=== PATIENT | male | born 1955 | race Caucasian/White ===

== ENCOUNTER 2017-10-07 17:04 | Inpatient (IN) | payer MEDICAID ==
[2017-10-07 17:42] LABS: Basophils % (A) 0 %; Eosinophils # (A) 0.2 k/uL (0-0.7); Eosinophils % (A) 1 %; HCT 45.5 % (39.0-53.0); HGB 14.9 gm/dL (13.0-17.5); Lymphocytes # (A) 0.4 k/uL (1.0-4.8); Lymphocytes % (A) 2 %; MCH 29.3 pg (25.0-35.0); MCHC 32.9 g/dL (31.0-37.0); MCV 89.2 fL (80.0-100.0); Mean Platelet Volume 7.2; Monocytes # (A) 0.7 k/uL (0-1.0); Monocytes % (A) 4 %; Neutrophils # (A) 17.3 k/uL (1.3-7.7); Neutrophils % (A) 93 %; Platelet Count 146 k/uL (150-450); RDW 15.2 % (11.5-15.5); WBC 18.7 k/uL (3.8-10.6)
[2017-10-07] MEDS: SODIUM CHLORIDE 0.9% 250 ML IV SCH ×3 (17:47→18:56)
[2017-10-07 17:55] LABS: Albumin 3.6 g/dL (3.5-5.0); Calcium 8.8 mg/dL (8.4-10.2); Potassium 4.6 mmol/L (3.5-5.1); Total Bilirubin 2.3 mg/dL (0.2-1.3); Total Protein 6.6 g/dL (6.3-8.2)
--- NOTE | 2017-10-07 17:56 | ED ---
General Adult HPI - General Chief complaint: Fever Stated complaint: Sepsis Time Seen by Provider: 10/07/17 17:10 Source: patient, EMS, RN notes reviewed, old records reviewed Mode of arrival: EMS Limitations: no limitations - History of Present Illness Initial comments: 61-year-old male presenting from outside hospital for evaluation of fever and confusion. Patient was taken to the emergency department and found to have an elevated temperature, elevated heart rate, and low blood pressure. Laboratory studies were obtained, patient did receive head CT, chest x-ray, abdominal x- ray. He was given antibiotics, fever control, and IV fluids. He was transferred for further evaluation. At the time of my evaluation patient is alert and oriented 3. He states that over the past several days he has been attempting to lose weight and has had some constipation. He has been straining and he has developed some rectal pain. Denies any central abdominal pain. Denies cough. Denies dysuria. Patient is morbidly obese and diabetic he also has congestive heart failure. Denies any chest pain. He does have dyspnea baseline and is currently on 4 L of home O2. He received Levaquin prior to transfer. - Related Data Home Medications Medication Instructions Recorded Confirmed Aspirin EC [Ecotrin Low Dose] 81 mg PO DAILY 10/07/17 10/07/17 Dapagliflozin Propanediol [Farxiga] 10 mg PO DAILY 10/07/17 10/07/17 Furosemide [Lasix] 40 mg PO DAILY 10/07/17 10/07/17 Glimepiride [Amaryl] 4 mg PO DAILY 10/07/17 10/07/17 Losartan Potassium [Cozaar] 100 mg PO DAILY 10/07/17 10/07/17 Terazosin [Hytrin] 5 mg PO HS 10/07/17 10/07/17 amLODIPine [Norvasc] 10 mg PO DAILY 10/07/17 10/07/17 metFORMIN HCL 1,000 mg PO BID 10/07/17 10/07/17 Allergies Allergy/AdvReac Type Severity Reaction Status Date / Time No Known Allergies Allergy Verified 10/07/17 17:59 Review of Systems ROS Statement: Those systems with pertinent positive or pertinent negative responses have been documented in the HPI. ROS Other: All systems not noted in ROS Statement are negative. Past Medical History Past Medical History: Heart Failure, Diabetes Mellitus, Hypertension History of Any Multi-Drug Resistant Organisms: None Reported Past Surgical History: No Surgical Hx Reported Past Psychological History: No Psychological Hx Reported Smoking Status: Never smoker Past Alcohol Use History: None Reported Past Drug Use History: None Reported General Exam Limitations: no limitations General appearance: alert, in no apparent distress, obese Head exam: Present: atraumatic, normocephalic Eye exam: Present: normal appearance, PERRL ENT exam: Present: normal exam Neck exam: Present: normal inspection, full ROM. Absent: tenderness, meningismus Respiratory exam: Present: decreased breath sounds. Absent: respiratory distress, rhonchi Cardiovascular Exam: Present: normal rhythm, tachycardia GI/Abdominal exam: Present: soft, distended. Absent: tenderness (No tenderness) , guarding, rebound Rectal exam: Present: normal inspection, tenderness (Mild tenderness, no crepitus, no erythema, normal cap refill.) exam: Present: other (No erythema, no crepitus, no induration). Absent: testicular tenderness, urethral discharge, scrotal swelling Extremities exam: Present: pedal edema, other. Absent: tenderness (No cellulitis) Neurological exam: Present: alert, oriented X3, CN II-XII intact. Absent: motor sensory deficit Psychiatric exam: Present: normal affect, normal mood Skin exam: Present: warm, dry, intact. Absent: cyanosis, diaphoretic Course Vital Signs 10/07/17 10/07/17 10/07/17 17:17 18:30 19:00 Temperature 98.2 F 100.1 F H Pulse Rate 128 H 105 H 104 H Respiratory 18 18 18 Rate Blood Pressure 90/50 86/51 87/51 O2 Sat by Pulse 96 96 96 Oximetry 10/07/17 20:06 Temperature Pulse Rate 102 H Respiratory 20 Rate Blood Pressure 94/51 O2 Sat by Pulse 95 Oximetry - Reevaluation(s) Reevaluation #1: 10/07/17 20:35 Vital signs improved with gentle IV hydration and IV antibiotics. Medical Decision Making - Medical Decision Making 61-year-old male sent from outside hospital for fever and confusion. Confusion is completely resolved. Patient is alert and oriented, nonfocal neuro exam. Laboratory studies from outside hospital are reviewed, he did have a elevated white blood cell count at 15, hemoglobin stable, urinalysis was negative for infection. Troponin was mildly elevated at 0.053 with an elevated BNP. Lactic acid was 3.5, this is down trending with a repeat at 2.1. Electrolytes were within normal limits. All laboratory studies were repeated and does show a improved lactic acid at 2.1. White blood cell count continues to trend up at 15. Bilirubin is mildly elevated and as there is no obvious source for his fever at this time, ultrasound is performed after CT is completed and is nondiagnostic. Ultrasound does show thickened gallbladder wall with gallbladder stones. There is no pericholecystic fluid. Negative Mariee's sign. Findings reflect possible acute cholecystitis, this is discussed with Dr. Briones who is general surgery on-call. Patient will be continued on IV antibiotics at this time. Laboratory studies will be repeated to observe for up trending bilirubin. Patient will be continued on vancomycin and Zosyn. Patient will be admitted to internal medicine with infectious disease and general surgery consult. - Lab Data Result diagrams: 10/07/17 17:35 10/07/17 17:35 Lab Results 10/07/17 10/07/17 10/07/17 Range/Units 17:35 17:35 17:35 WBC 18.7 H (3.8-10.6) k/uL RBC 5.10 (4.30-5.90) m/uL Hgb 14.9 (13.0-17.5) gm/dL Hct 45.5 (39.0-53.0) % MCV 89.2 (80.0-100.0) fL MCH 29.3 (25.0-35.0) pg MCHC 32.9 (31.0-37.0) g/dL RDW 15.2 (11.5-15.5) % Plt Count 146 L (150-450) k/uL Neutrophils % 93 % Lymphocytes % 2 % Monocytes % 4 % Eosinophils % 1 % Basophils % 0 % Neutrophils # 17.3 H (1.3-7.7) k/uL Lymphocytes # 0.4 L (1.0-4.8) k/uL Monocytes # 0.7 (0-1.0) k/uL Eosinophils # 0.2 (0-0.7) k/uL Basophils # 0.0 (0-0.2) k/uL Sodium 138 (137-145) mmol/L Potassium 4.6 (3.5-5.1) mmol/L Chloride 101 (98-107) mmol/L Carbon Dioxide 23 (22-30) mmol/L Anion Gap 14 mmol/L BUN 31 H (9-20) mg/dL Creatinine 1.30 H (0.66-1.25) mg/dL Est GFR (CKD-EPI)AfAm 68 (>60 ml/min/1.73 sqM) Est GFR (CKD-EPI)NonAf 59 (>60 ml/min/1.73 sqM) Glucose 148 H (74-99) mg/dL Plasma Lactic Acid Ryan 2.1 H* (0.7-2.0) mmol/L Calcium 8.8 (8.4-10.2) mg/dL Total Bilirubin 2.3 H (0.2-1.3) mg/dL Conjugated Bilirubin (0.0-0.3) mg/dL Unconjugated Bilirubin (0.0-1.1) mg/dL Delta Bilirubin (0.0-0.2) mg/dL AST 69 H (17-59) U/L ALT 71 (21-72) U/L Alkaline Phosphatase 107 (38-126) U/L Total Protein 6.6 (6.3-8.2) g/dL Albumin 3.6 (3.5-5.0) g/dL 10/07/17 Range/Units 17:35 WBC (3.8-10.6) k/uL RBC (4.30-5.90) m/uL Hgb (13.0-17.5) gm/dL Hct (39.0-53.0) % MCV (80.0-100.0) fL MCH (25.0-35.0) pg MCHC (31.0-37.0) g/dL RDW (11.5-15.5) % Plt Count (150-450) k/uL Neutrophils % % Lymphocytes % % Monocytes % % Eosinophils % % Basophils % % Neutrophils # (1.3-7.7) k/uL Lymphocytes # (1.0-4.8) k/uL Monocytes # (0-1.0) k/uL Eosinophils # (0-0.7) k/uL Basophils # (0-0.2) k/uL Sodium (137-145) mmol/L Potassium (3.5-5.1) mmol/L Chloride (98-107) mmol/L Carbon Dioxide (22-30) mmol/L Anion Gap mmol/L BUN (9-20) mg/dL Creatinine (0.66-1.25) mg/dL Est GFR (CKD-EPI)AfAm (>60 ml/min/1.73 sqM) Est GFR (CKD-EPI)NonAf (>60 ml/min/1.73 sqM) Glucose (74-99) mg/dL Plasma Lactic Acid Ryan (0.7-2.0) mmol/L Calcium (8.4-10.2) mg/dL Total Bilirubin 2.4 H (0.2-1.3) mg/dL Conjugated Bilirubin 0.3 (0.0-0.3) mg/dL Unconjugated Bilirubin 0.9 (0.0-1.1) mg/dL Delta Bilirubin 1.2 H (0.0-0.2) mg/dL AST (17-59) U/L ALT (21-72) U/L Alkaline Phosphatase (38-126) U/L Total Protein (6.3-8.2) g/dL Albumin (3.5-5.0) g/dL Critical Care Time Critical Care Time: Yes Total Critical Care Time: 35 Disposition Clinical Impression: Sepsis, Cholecystitis Disposition: ADMITTED IP TO THIS [facility] Condition: Serious Is patient prescribed a controlled substance at d/c from ED?: No Referrals: Ariel Snider MD [Primary Care Provider] - 1-2 days Decision to Admit Reason: Admit from EC Decision Date: 10/07/17 Decision Time: 20:38
[2017-10-07] MEDS ORDERED: VANCOMYCIN IV PER PHARMACY 1 EACH MISC MISCELLANE PRN (18:16)
[2017-10-07] MEDS ORDERED: PIPERACILLIN-TAZOBACTAM 3.375 GM in DEXTROSE/WATER 1 50ML.BAG IVPB STA (18:22)
[2017-10-07 18:32] LABS: Bilirubin, Conjugated 0.3 mg/dL (0.0-0.3); Bilirubin, Delta 1.2 mg/dL (0.0-0.2); Bilirubin,Unconjugated 0.9 mg/dL (0.0-1.1); Total Bilirubin 2.4 mg/dL (0.2-1.3)
--- NOTE | 2017-10-07 18:47 | CT ---
EXAMINATION TYPE: CT abdomen pelvis w con DATE OF EXAM: 10/07/2017 COMPARISON: NONE HISTORY: Fever, confusion and tachycardia x1 week CT DLP: 2846.3 mGycm Automated exposure control for dose reduction was used. CONTRAST: CT scan of the abdomen pelvis is performed with IV Contrast, patient injected with 100ml mL of Isovue 300. FINDINGS- exam is markedly limited by artifact. Portions of the abdomen are not included on exam. Thi s likely related to patient's body habitus. Results in nearly nondiagnostic exam. There is subcutaneo us edema along the intra-abdominal wall. Exam is nondiagnostic for subsegmental basilar atelectasis or infiltrate.. Free air or free fluid. No obvious hydronephrosis. There is a 6 mm lower pole left renal calculus. Hypertrophic and degenerat fabián change of the spine noted. Resolution of the mid and lower lumbar spine is nondiagnostic IMPRESSION- 1. Essentially nondiagnostic exam as portions of the abdomen are not included in the [id number]. T here does appear to be bibasilar subsegmental atelectasis or infiltrate with tiny effusion. 2. Nonobstructing left renal calculus measuring 6 mm lower pole left kidney. 3. Skin thickening and subcutaneous edema along the lower anterior abdomen could be on the basis of amanda rodríguez correlate clinically.
[2017-10-07] MEDS ORDERED: VANCOMYCIN 2,500 MG in SODIUM CHLORIDE 0.9% 500 ML IVPB ONE (19:00)
[2017-10-07] MEDS ORDERED: ACETAMINOPHEN TAB 500 MG TAB PO STA (19:06)
--- NOTE | 2017-10-07 20:26 | US ---
EXAMINATION TYPE: US gallbladder DATE OF EXAM: 10/07/2017 COMPARISON: NONE CLINICAL HISTORY: Pain. Pain EXAM MEASUREMENTS: Liver Length: 24.6 cm Gallbladder Wall: 0.4 cm CBD: 0.6 cm Right Kidney: 14.0 x 5.8 x 6.0 cm Severely morbidly obese pt Pancreas: Limited and obscured by overlying bowel gas Liver: Enlarged, heterogeneous with probable fatty sparing anterior to GB Gallbladder: Possible small gallstone= 5mm in size, wall thickened/ LLD views not obtained due to pt 's morbid obesity Evidence for sonographic Mariee's sign: No CBD: wnl Right Kidney: wnl IMPRESSION: 1. Liver is heterogeneous and enlarged correlate for hepatomegaly. Possible focal area of fatty spari ng near the gallbladder. 2. Multiple gallbladder stones with thickened gallbladder wall measuring 4 mm. Correlate for cholecys titis.
[2017-10-07] MEDS ORDERED: ACETAMINOPHEN TAB 325 MG TAB PO PRN (20:38)
[2017-10-07] MEDS ORDERED: NALOXONE 0.4 MG/ML 1 ML VIAL IV PRN (20:38)
[2017-10-07] MEDS ORDERED: ONDANSETRON 4 MG/2 ML VIAL IVP PRN (20:38)
[2017-10-07] MEDS ORDERED: SODIUM CHLORIDE 0.9% 250 ML IV ONE (21:16)
[2017-10-07 22:30] VITALS: BMI 66.2
[2017-10-07] MEDS: 0.9% NACL WITH KCL 20 MEQ/L 1,000 ML IV SCH (23:00)
[2017-10-08 00:55] LABS: Creatine Kinase MB 2.3 ng/mL (0.0-2.4)
[2017-10-08 00:58] LABS: Troponin I 0.131 ng/mL (0.000-0.034)
[2017-10-08] MEDS: PIPERACILLIN-TAZOBACTAM 3.375 GM in DEXTROSE/WATER 1 50ML.BAG IVPB SCH ×3 (02:48→18:32)
[2017-10-08] MEDS ORDERED: LEVOFLOXACIN 500MG-D5W PMX 500 MG in DEXTROSE/WATER 1 100ML.BAG IVPB SCH (06:00)
[2017-10-08] MEDS: KETOROLAC 30 MG/ML 1 ML VIAL IVP PRN ×2 (06:09→12:13)
[2017-10-08 06:14] LABS: Glucose,Whole Blood 111 mg/dL (75-99)
[2017-10-08 06:42] LABS: Basophils % (A) 0 %; Eosinophils # (A) 0.1 k/uL (0-0.7); Eosinophils % (A) 0 %; HCT 44.2 % (39.0-53.0); Lymphocytes # (A) 0.9 k/uL (1.0-4.8); Lymphocytes % (A) 6 %; MCH 28.8 pg (25.0-35.0); MCHC 31.7 g/dL (31.0-37.0); MCV 90.9 fL (80.0-100.0); Mean Platelet Volume 7.3; Monocytes # (A) 0.7 k/uL (0-1.0); Monocytes % (A) 5 %; Neutrophils # (A) 13.3 k/uL (1.3-7.7); Neutrophils % (A) 88 %; Platelet Count 139 k/uL (150-450); RBC 4.86 m/uL (4.30-5.90); RDW 15.4 % (11.5-15.5); WBC 15.2 k/uL (3.8-10.6)
[2017-10-08 07:00] LABS: Albumin 3.6 g/dL (3.5-5.0); Calcium 8.7 mg/dL (8.4-10.2); Potassium 4.4 mmol/L (3.5-5.1); Total Bilirubin 1.2 mg/dL (0.2-1.3); Total Protein 6.4 g/dL (6.3-8.2)
[2017-10-08 07:25] LABS: Creatine Kinase MB 3.3 ng/mL (0.0-2.4); Troponin I 0.132 ng/mL (0.000-0.034)
--- NOTE | 2017-10-08 09:56 | CONS ---
CONSULTATION This is a 61-year-old gentleman with history of morbid obesity, right-sided heart failure, sleep apnea, hypertension, [id number] diabetes, who is admitted to hospital yesterday with symptoms of not feeling well and fever and confusion. The patient was taken to the emergency room where he was found to have a low blood pressure, elevated heart rate, temperature underwent workup in the form of chest x-ray, CT abdominal x-rays given antibiotics and was transferred to [facility]. Cardiology had been consulted because of elevated troponins. The patient was in [place] at a hospital with symptoms of heart failure and has had extensive workup and I recently seen him in my office. His problems are primarily related to his morbid obesity, right-sided heart failure and what appears like a Pickwickian syndrome. The current admission seems to be related to sepsis. White cell count is elevated at 15.2. BUN and creatinine are up. The troponins are mildly elevated at 0.1 and 0.1, probably related to sepsis and the renal insufficiency. The patient is morbidly obese and is not a candidate for any invasive workup at this time. I will obtain a 2D echo on him to evaluate his LV function and wall motion. PAST MEDICAL HISTORY: Significant for hypertension, rwa-[id number] diabetes. MEDICATIONS: Include aspirin, Lasix, Amaryl, Cozaar, Norvasc, metformin, and Hytrin. ALLERGIES: There are no known drug allergies. FAMILY HISTORY: Negative for premature coronary artery disease. SOCIAL HISTORY: Negative for current smoking, EtOH abuse, or drug abuse. REVIEW OF SYSTEMS: HEENT is significant for confusion. CARDIAC: Negative. Respiratory negative. GI negative. : Negative. Allergy/Immunology: Negative. Skin: Negative. Musculoskeletal significant for arthritis. Psychosocial negative. Endocrine: Negative. Hematological: Negative. Derm: Significant for chronic stasis changes of the lower extremities. Psychosocial negative. Endocrine, hematological and oncological negative. PHYSICAL EXAM: Heart rate is 61 beats per minute. Blood pressure is 94/50. Respirations 18. Chest exam reveals diminished air entry at the bases. Heart exam reveals first and second heart sounds. No gallop. Abdomen is soft. Exam of extremities reveals bilateral pitting edema. LABS: Labs show a hemoglobin of 14, white cell count is elevated. Potassium is 4.4, creatinine is 1.6. Tropes are mildly elevated. ASSESSMENT: 1. Sepsis. 2. Elevated troponins. I reviewed his EKG. It is within normal limits. I will obtain a 2D echo. No other evaluation is needed for the troponin elevation at this time. We are going to follow the patient with you with interest. On discharge, he can keep the appointment that he already had from his recent evaluation in my office. I will obtain a 2D echo on this admission. Thank you for giving me the privilege to participate in the care of this pleasant gentleman. ALYCIA / CHRISTINA: [id number] /
[2017-10-08 10:07] LABS: Appearance,Urine Cloudy (Clear); Bacteria,Urine Occasional /hpf; Bilirubin,Urine Negative (Negative); Blood,Urine Small (Negative); Color,Urine Yellow; Glucose,Urine (UA) 4+ (Negative); Ketones,Urine Negative (Negative); Leukocyte Esterase,Urine Large (Negative); Mucus,Urine Rare /hpf; Nitrite,Urine Negative (Negative); PH, Urine 5.5 (5.0-8.0); Protein,Urine 1+ (Negative); RBC,Urine 34 /hpf (0-5); Specific Gravity,Urine 1.035 (1.001-1.035); Squamous Epithelial Cell,Urine 3 /hpf (0-4); WBC,Urine 10 /hpf (0-5)
[2017-10-08] MEDS ORDERED: VANCOMYCIN 2,500 MG in SODIUM CHLORIDE 0.9% 500 ML IVPB SCH (11:00)
[2017-10-08 11:50] LABS: Glucose,Whole Blood 114 mg/dL (75-99)
--- NOTE | 2017-10-08 12:36 | P.GSCN ---
History of Present Illness Consult date: 10/08/17 Reason for Consult: Sepsis, possible cholecystitis, rectal pain History of present illness: 61-year-old male transferred to our emergency department with suspicion for sepsis. The patient was febrile, had leukocytosis, had elevated heart rate, blood pressure was slightly low, and he was confused. Upon arrival to our hospital the patient was appropriate with resolution of his delirium. A CAT scan was performed of the abdomen which showed no definite abnormalities. His bilirubin was slightly elevated and for that reason an ultrasound was obtained which showed possible gallstones and possible gallbladder wall thickening. Patient denies abdominal pain. He does describe pain in the perirectal location. He has been constipated as a result of decreased oral intake and Lasix recently. He felt something give when he was straining about 4-5 days ago. Ever since then he has had pain in the perirectal location. He feels less malaise today. White blood cell count slightly improved. T-max 100.1 here Review of Systems The patient denies any acute changes in vision or hearing, no dysphagia or odynophagia, no chest pain or shortness of breath, no dysuria or hematuria, no headache, no runny nose, no rectal bleeding or melena, no unexplained weight loss Past Medical History Past Medical History: Heart Failure, Diabetes Mellitus, Hypertension History of Any Multi-Drug Resistant Organisms: None Reported Past Surgical History: No Surgical Hx Reported Past Psychological History: No Psychological Hx Reported Smoking Status: Never smoker Past Alcohol Use History: None Reported Past Drug Use History: None Reported Medications and Allergies Home Medications Medication Instructions Recorded Confirmed Type Aspirin EC [Ecotrin Low Dose] 81 mg PO DAILY 10/07/17 10/07/17 History Dapagliflozin Propanediol [Farxiga] 10 mg PO DAILY 10/07/17 10/07/17 History Furosemide [Lasix] 40 mg PO DAILY 10/07/17 10/07/17 History Glimepiride [Amaryl] 4 mg PO DAILY 10/07/17 10/07/17 History Losartan Potassium [Cozaar] 100 mg PO DAILY 10/07/17 10/07/17 History Terazosin [Hytrin] 5 mg PO DAILY 10/07/17 10/07/17 History amLODIPine [Norvasc] 10 mg PO DAILY 10/07/17 10/07/17 History metFORMIN HCL 1,000 mg PO BID 10/07/17 10/07/17 History Allergies Allergy/AdvReac Type Severity Reaction Status Date / Time No Known Allergies Allergy Verified 10/07/17 17:59 Surgical - Exam Vital Signs Temp Pulse Resp BP Pulse Ox 98.2 F 128 H 18 90/50 96 10/07/17 17:17 10/07/17 17:17 10/07/17 17:17 10/07/17 17:17 10/07/17 17:17 Physical exam: General: Well-developed, well-nourished HEENT: Normocephalic, sclerae nonicteric Abdomen: Nontender, nondistended Extremities: No edema Neuro: Alert and oriented Rectal: Perirectal fullness tenderness and fluctuance in the left posterior location, slight erythema Results - Labs 10/08/17 05:24 10/08/17 05:24 Abnormal Lab Results - Last 24 Hours (Table) 10/07/17 10/07/17 10/07/17 Range/Units 17:35 17:35 17:35 WBC 18.7 H (3.8-10.6) k/uL Plt Count 146 L (150-450) k/uL Neutrophils # 17.3 H (1.3-7.7) k/uL Lymphocytes # 0.4 L (1.0-4.8) k/uL BUN 31 H (9-20) mg/dL Creatinine 1.30 H (0.66-1.25) mg/dL Glucose 148 H (74-99) mg/dL POC Glucose (mg/dL) (75-99) mg/dL Plasma Lactic Acid Ryan 2.1 H* (0.7-2.0) mmol/L Total Bilirubin 2.3 H (0.2-1.3) mg/dL Delta Bilirubin (0.0-0.2) mg/dL AST 69 H (17-59) U/L Total Creatine Kinase (55-170) U/L CK-MB (CK-2) (0.0-2.4) ng/mL Troponin I (0.000-0.034) ng/mL Urine Protein (Negative) Urine Glucose (UA) (Negative) Urine Blood (Negative) Ur Leukocyte Esterase (Negative) Urine RBC (0-5) /hpf Urine WBC (0-5) /hpf Urine Bacteria (None) /hpf Urine Mucus (None) /hpf 06/09/18 06/09/18 06/10/18 Range/Units 17:35 23:28 05:24 WBC 15.2 H (3.8-10.6) k/uL Plt Count 139 L (150-450) k/uL Neutrophils # 13.3 H (1.3-7.7) k/uL Lymphocytes # 0.9 L (1.0-4.8) k/uL BUN (9-20) mg/dL Creatinine (0.66-1.25) mg/dL Glucose (74-99) mg/dL POC Glucose (mg/dL) (75-99) mg/dL Plasma Lactic Acid Ryan (0.7-2.0) mmol/L Total Bilirubin 2.4 H (0.2-1.3) mg/dL Delta Bilirubin 1.2 H (0.0-0.2) mg/dL AST (17-59) U/L Total Creatine Kinase 221 H (55-170) U/L CK-MB (CK-2) (0.0-2.4) ng/mL Troponin I 0.131 H* (0.000-0.034) ng/mL Urine Protein (Negative) Urine Glucose (UA) (Negative) Urine Blood (Negative) Ur Leukocyte Esterase (Negative) Urine RBC (0-5) /hpf Urine WBC (0-5) /hpf Urine Bacteria (None) /hpf Urine Mucus (None) /hpf 10/08/17 10/08/17 10/08/17 Range/Units 05:24 05:24 06:12 WBC (3.8-10.6) k/uL Plt Count (150-450) k/uL Neutrophils # (1.3-7.7) k/uL Lymphocytes # (1.0-4.8) k/uL BUN 41 H (9-20) mg/dL Creatinine 1.60 H (0.66-1.25) mg/dL Glucose 100 H (74-99) mg/dL POC Glucose (mg/dL) 111 H (75-99) mg/dL Plasma Lactic Acid Ryan (0.7-2.0) mmol/L Total Bilirubin (0.2-1.3) mg/dL Delta Bilirubin (0.0-0.2) mg/dL AST (17-59) U/L Total Creatine Kinase 281 H (55-170) U/L CK-MB (CK-2) 3.3 H* (0.0-2.4) ng/mL Troponin I 0.132 H* (0.000-0.034) ng/mL Urine Protein (Negative) Urine Glucose (UA) (Negative) Urine Blood (Negative) Ur Leukocyte Esterase (Negative) Urine RBC (0-5) /hpf Urine WBC (0-5) /hpf Urine Bacteria (None) /hpf Urine Mucus (None) /hpf 10/08/17 10/08/17 Range/Units 09:25 11:43 WBC (3.8-10.6) k/uL Plt Count (150-450) k/uL Neutrophils # (1.3-7.7) k/uL Lymphocytes # (1.0-4.8) k/uL BUN (9-20) mg/dL Creatinine (0.66-1.25) mg/dL Glucose (74-99) mg/dL POC Glucose (mg/dL) 114 H (75-99) mg/dL Plasma Lactic Acid Ryan (0.7-2.0) mmol/L Total Bilirubin (0.2-1.3) mg/dL Delta Bilirubin (0.0-0.2) mg/dL AST (17-59) U/L Total Creatine Kinase (55-170) U/L CK-MB (CK-2) (0.0-2.4) ng/mL Troponin I (0.000-0.034) ng/mL Urine Protein 1+ H (Negative) Urine Glucose (UA) 4+ H (Negative) Urine Blood Small H (Negative) Ur Leukocyte Esterase Large H (Negative) Urine RBC 34 H (0-5) /hpf Urine WBC 10 H (0-5) /hpf Urine Bacteria Occasional H (None) /hpf Urine Mucus Rare H (None) /hpf Diabetes panel 10/07/17 10/08/17 Range/Units 17:35 05:24 Sodium 138 142 (137-145) mmol/L Potassium 4.6 4.4 (3.5-5.1) mmol/L Chloride 101 100 (98-107) mmol/L Carbon Dioxide 23 26 (22-30) mmol/L BUN 31 H 41 H (9-20) mg/dL Creatinine 1.30 H 1.60 H (0.66-1.25) mg/dL Glucose 148 H 100 H (74-99) mg/dL Calcium 8.8 8.7 (8.4-10.2) mg/dL AST 69 H 46 (17-59) U/L ALT 71 63 (21-72) U/L Alkaline Phosphatase 107 99 (38-126) U/L Total Protein 6.6 6.4 (6.3-8.2) g/dL Albumin 3.6 3.6 (3.5-5.0) g/dL Calcium panel 10/07/17 10/08/17 Range/Units 17:35 05:24 Calcium 8.8 8.7 (8.4-10.2) mg/dL Albumin 3.6 3.6 (3.5-5.0) g/dL Pituitary panel 10/07/17 10/08/17 Range/Units 17:35 05:24 Sodium 138 142 (137-145) mmol/L Potassium 4.6 4.4 (3.5-5.1) mmol/L Chloride 101 100 (98-107) mmol/L Carbon Dioxide 23 26 (22-30) mmol/L BUN 31 H 41 H (9-20) mg/dL Creatinine 1.30 H 1.60 H (0.66-1.25) mg/dL Glucose 148 H 100 H (74-99) mg/dL Calcium 8.8 8.7 (8.4-10.2) mg/dL Adrenal panel 10/07/17 10/07/17 10/08/17 Range/Units 17:35 17:35 05:24 Sodium 138 142 (137-145) mmol/L Potassium 4.6 4.4 (3.5-5.1) mmol/L Chloride 101 100 (98-107) mmol/L Carbon Dioxide 23 26 (22-30) mmol/L BUN 31 H 41 H (9-20) mg/dL Creatinine 1.30 H 1.60 H (0.66-1.25) mg/dL Glucose 148 H 100 H (74-99) mg/dL Calcium 8.8 8.7 (8.4-10.2) mg/dL Total Bilirubin 2.3 H 2.4 H 1.2 (0.2-1.3) mg/dL AST 69 H 46 (17-59) U/L ALT 71 63 (21-72) U/L Alkaline Phosphatase 107 99 (38-126) U/L Total Protein 6.6 6.4 (6.3-8.2) g/dL Albumin 3.6 3.6 (3.5-5.0) g/dL Assessment and Plan (1) Perirectal abscess Narrative/Plan: Patient with evidence of perirectal abscess. We'll proceed with incision and drainage at this time. Risks of bleeding, infection, persistent wound, recurrence, fistula formation, and anesthesia-related complications reviewed. He and his family understand and wish to proceed. Current Visit: Yes Status: Acute Code(s): K61.1 - RECTAL ABSCESS SNOMED Code(s): 04056862
[2017-10-08] MEDS ORDERED: MIDAZOLAM 2 MG/2 ML VIAL ONE (13:11)
[2017-10-08] MEDS ORDERED: PHENYLEPHRINE-0.9% NACL SYG 1 MG/10 ML SYRINGE ONE (13:11)
[2017-10-08] MEDS ORDERED: IV FLUID CONTINUATION 800 ML IV ONE ×2 (13:11)
[2017-10-08] MEDS ORDERED: BUPIVACAINE (PF) 0.5% 30 ML VIAL SQ ONE ×2 (13:39)
--- NOTE | 2017-10-08 13:53 | P.OP ---
Date of Procedure: 10/08/17 Procedure(s) Performed: PREOPERATIVE DIAGNOSIS: Perirectal abscess POSTOPERATIVE DIAGNOSIS: Same PROCEDURE: Issue and drainage perirectal abscess SURGEON: Anselmo EBL: Minimal ANESTHESIA: Spinal COMPLICATIONS: None OPERATIVE PROCEDURE: Patient was placed in the left decubitus position after spinal anesthesia was achieved. The patient had a fluctuant mass this to the right of midline. The initial surgical consult was incorrect labeling it left side. A radial incision was made overlying the fluctuant area. Entrance into a subcutaneous abscess cavity took place. The abscess was actually quite large measuring approximately 8 cm in length and approximately 2.5-3 cm in width. Cultures were taken. The area was irrigated with saline. The wound was then packed with one-inch iodoform gauze. The entire container of iodoform was utilized. Sterile dressings were applied. The area was also localized with 0.5 % Marcaine. DISPOSITION: Stable to recovery room
[2017-10-08] MEDS ORDERED: SODIUM CHLORIDE 0.9% 1,000 ML IV ONE (14:18)
[2017-10-08 16:41] LABS: Glucose,Whole Blood 159 mg/dL (75-99)
[2017-10-08] MEDS: 0.9% NACL WITH KCL 20 MEQ/L 1,000 ML IV SCH (17:44)
[2017-10-08] MEDS: Acetaminophen-Codeine 300-30mg TAB PO PRN (18:48)
--- NOTE | 2017-10-08 19:23 | HP ---
HISTORY AND PHYSICAL DATE OF ADMISSION: 10/07/2017 DATE OF SERVICE: 10/08/2017 PRESENTING COMPLAINT: Rectal pain. HISTORY OF PRESENTING COMPLAINT: This is a patient I came to see twice this afternoon but patient had gone to the OR. This very pleasant gentleman follows with Dr. Snider. Chronic stable medical conditions include diabetes, hypertension, being worked up for obstructive sleep apnea and has osteoarthritis in multiple joints and morbidly obese, and chronic hypoxic respiratory failure. The patient about 2 weeks ago had gone to [facility] in [place], where he was prescribed oxygen. Patient wears 4 L at home. The patient in the process of getting a sleep apnea test done locally here in [place], does not know the name. For about a week, patient noticing increasing pain in the rectal area and pain became rather severe. The patient also developed a fever, low-grade fever. The patient is found to have a rectal abscess, taken to the OR today and a large rectal abscess was drained by Dr. Briones. The patient is feeling a bit better since then and the patient blood pressure has been running on the lower side. REVIEW OF SYSTEMS: CONSTITUTIONAL: Weak, tired, low-grade fever. HEENT none. RESPIRATORY: Baseline short of breath. CARDIOVASCULAR none. GASTROINTESTINAL none. GENITOURINARY none. MUSCULOSKELETAL as above. DERMATOLOGICAL none. HEMATOLOGICAL: None. LYMPHATIC none. PSYCHIATRY none. NEUROLOGICAL none. PAST MEDICAL HISTORY: Of diabetes, hypertension, chronic hypoxic respiratory failure, osteoarthritis, morbid obesity. PAST SURGICAL HISTORY: None. SOCIAL HISTORY: No smoking, no alcohol. . 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 FAMILY HISTORY: Reviewed, noncontributory to presentation. HOME MEDICATIONS: 1. Hytrin 5 mg p.o. daily. 2. Metformin 1000 mg p.o. b.i.d. 3. Norvasc 10 mg p.o. daily. 4. Cozaar 100 mg p.o. daily. 5. Amaryl 4 mg p.o. daily. 6. Lasix 40 mg p.o. daily. 7. Farxiga 10 mg p.o. daily. 8. Aspirin 81 mg p.o. daily. ALLERGIES: None. PHYSICAL EXAMINATION: VITAL SIGNS: T-max 100.1, pulse 128 on admission, respiration 18, blood pressure down to 87/51, pulse ox 96% on room air. GENERAL APPEARANCE: Morbidly obese. BMI 61. Sitting at the edge of the bed, tired-appearing. EYES: Pupils equal. Conjunctivae normal. HEENT: External appearance of nose and ears normal. Oral cavity normal. NECK: JVD unable to assess. Mass not palpable. RESPIRATORY effort increased. LUNGS: Distant breath sounds. CARDIOVASCULAR: Heart sounds muffled. Edema present. ABDOMEN: Soft. Liver and spleen not palpable. LYMPHATICS: No lymph nodes palpable in the neck and axillae. PSYCHIATRY: Alert and oriented x3. Mood and affect normal. NEUROLOGICAL: Pupils equal. Cranial nerves grossly intact. Power and sensation grossly intact. Buttock area dressing in place. INVESTIGATIONS: White count 15.2, potassium 4.4, BUN 41, creatinine 1.60. Troponin 0.132, 0.105. UA positive for leukocyte esterase. CT of the abdomen left renal calculi. ASSESSMENT: 1. Perirectal abscess causing sepsis, present on admission in a diabetic patient. 2. Diabetes mellitus type 2 on oral hypoglycemia. 3. Morbidly obese. BMI 65.3. 4. Chronic lower extremity edema likely from venous insufficiency. 5. Primary osteoarthritis in multiple joints bilateral. 6. Renal failure could be prerenal. 7. Troponin leak likely from hemodynamic mismatch in a setting of renal failure. PLAN: Patient is started on vancomycin in the ER, given renal failure, we will DC the same and start the patient on daptomycin. The patient also getting IV Zosyn. Patient's Cozaar and Lasix will be held for now. We will get renal opinion to check chronicity. We will also give patient IV fluids. Follow from there. Copy to Dr. Snider. MMKRYSTYNAL / FAWADN: [id number] /
[2017-10-08 20:50] LABS: Glucose,Whole Blood 152 mg/dL (75-99)
--- NOTE | 2017-10-08 23:11 | CONS ---
CONSULTATION DATE OF SERVICE: 10/08/2017. REASON FOR CONSULTATION: Perirectal abscess. HISTORY OF PRESENT ILLNESS: The patient is a 61-year-old male who started having a problem with constipation and abdominal pain that has been going on for about a week. The patient said that he tried to manage his constipation himself and was he basically straining on the stools. Subsequently had pain in the lower abdominal deep pelvic area of a low intensity, about 3 to 4/10, that subsequently has increased in severity to almost 7/10. The patient has felt nauseated but no vomiting. With constipation and abdominal pain, has started having a fever yesterday that did concern the patient. Hence he went to the [facility]. However, at that facility CT was not recommended due to his weight and the patient has been transferred to the [facility] for a CT of the abdomen and pelvis. The CT was done which was essentially nondiagnostic as per the radiologist. Abdominal included in the field of view. Thickening along the lower anterior abdomen, could be on the basis of cellulitis. The patient subsequently has been evaluated by Surgery. The patient has been diagnosed with a perirectal abscess. The patient has been taken to the OR and is status post drainage of this perirectal abscess with the abscess cavity measuring about 8 cm in length and 2.5 to 3 cm in width. Culture has been obtained. The patient has been started on the Zosyn and daptomycin. Infectious Disease was consulted for further recommendation regarding antibiotic therapy. REVIEW OF SYSTEMS: CONSTITUTIONAL: Positive for weakness along with fever. EYES: No complaint. ENT: No complaint. RESPIRATORY: No complaint. CARDIOVASCULAR: No complaint. ENT: No complaint. GASTROINTESTINAL: As per HPI. MUSCULOSKELETAL: No complaint. ENT: No complaint. PSYCHOLOGIC: No complaint. ENDOCRINE: No complaint. NEUROLOGIC: No complaint. PAST MEDICAL HISTORY: Significant for diabetes mellitus, hypertension, heart failure. PAST SURGICAL HISTORY: No major surgeries. SOCIAL HISTORY: No smoking, drinking or drug use. FAMILY HISTORY: No pertinent findings noticed. ALLERGIES: No known drug allergies. MEDICATIONS: The patient is currently on Tylenol, daptomycin, lactated Ringer, Narcan, Zofran, Zosyn and IV fluids. EXAMINATION: Blood pressure is 117/71 with a pulse of 73, temperature 96.9, he is 94% on 4 L nasal cannula. GENERAL DESCRIPTION: A middle-aged male lying in bed in no distress. No tachypnea or accessory muscle of respiration use. HEENT: Shows no pallor or scleral icterus. Oral mucosa is dry. No thrush. NECK: Trachea central. No thyromegaly. LUNGS: Unlabored breathing. Clear to auscultation anteriorly. No wheeze or crackle. HEART: S1, S2. Regular rate and rhythm. ABDOMEN: Soft, no tenderness. No guarding or rigidity. EXTREMITIES: No edema of the feet. SKIN: No rash or mass palpable. NEUROLOGIC: The patient is awake, alert. Mood and affect normal. LABS: Hemoglobin is 14, white count 15.2, BUN of 41, creatinine 1.60. Troponin slightly elevated. Urine was positive with esterases. Cultures obtained currently pending. DIAGNOSTIC IMPRESSION AND PLAN: Patient admitted to the hospital with sepsis and patient did have a fever, hypertension, elevated white count; source is perirectal abscess. The patient did have a significant constipation, more likely from enteric gram-negative pathogen and not likely from a gram-positive skin sammy, status post drainage of this abscess with cultures currently pending. PLAN: 1. The patient will be treated with Zosyn at 3.75 grams every 8 hours. 2. Aggressive IV fluid. 3. streptococcal coverage at this point. 4. We will follow up on his clinical condition and culture to further adjust medication if needed. Thank you for this consultation. Will follow this patient along with you. MMODL / IJN: [id number] /
[2017-10-09] MEDS: LACTATED RINGERS 1,000 ML IV SCH ×5 (02:50→23:35)
[2017-10-09 06:51] LABS: Calcium 8.5 mg/dL (8.4-10.2); Potassium 4.7 mmol/L (3.5-5.1)
[2017-10-09 06:54] LABS: Glucose,Whole Blood 157 mg/dL (75-99)
[2017-10-09] MEDS: PIPERACILLIN-TAZOBACTAM 3.375 GM in DEXTROSE/WATER 1 50ML.BAG IVPB SCH ×3 (06:57→19:05)
[2017-10-09] MEDS: Acetaminophen-Codeine 300-30mg TAB PO PRN ×2 (07:13→19:05)
--- NOTE | 2017-10-09 08:51 | US ---
EXAMINATION TYPE: US kidneys/renal and bladder DATE OF EXAM: 10/09/2017 COMPARISON: NONE CLINICAL HISTORY: renal failure. morbidly obese, recent abscess drainage in buttocks EXAM MEASUREMENTS: Right Kidney: 12.2 x 6.6 x 6.2 cm Left Kidney: 13.7 x 5.3 x 7.8 cm Right Kidney: wnl Left Kidney: large in size Bladder: not distended There is no evidence for hydronephrosis at this point in time. No nephrolithiasis is seen. No stephen s are identified. The urinary bladder is anechoic. Bilateral ureteral jets are seen. IMPRESSION: No acute process.
[2017-10-09] MEDS: 0.9% NACL WITH KCL 20 MEQ/L 1,000 ML IV SCH (11:15)
[2017-10-09] MEDS: PSYLLIUM HUSK 100% 6 GM PACKET PO SCH (11:18)
[2017-10-09 11:35] LABS: Glucose,Whole Blood 152 mg/dL (75-99)
--- NOTE | 2017-10-09 12:18 | CONS ---
CONSULTATION REASON FOR CONSULT: Renal failure. HISTORY OF PRESENT ILLNESS: The patient is a 61-year-old male who was admitted to the hospital with complaints of fever and rectal pain. He was found to have a perirectal abscess, which was drained. It was a large abscess with cavity about 8 cm. Currently, patient is maintained on IV antibiotics in the form of Zosyn. He is on IV fluids at 125 mL an hour. Serum creatinine was 1.3 on initial admission. It did go up to 1.6 yesterday and today it is down to 1.07. The patient states overall he is feeling better. He denies any prior history of kidney disease. He did mention that he takes Lasix on a routine basis prior to admission. Blood pressure has been on the lower side. It had been low as 81 mmHg yesterday. PAST MEDICAL HISTORY: Obesity, type 2 diabetes, hypertension, history of CHF ejection fraction not known at this time. PAST SURGICAL HISTORY: None. SOCIAL HISTORY: Negative for smoking, drug abuse or alcohol abuse. MEDICATIONS: Medications at home prior to admission included Lasix, Amaryl, Cozaar, Hytrin, Norvasc, metformin, Farxiga, aspirin. ALLERGIES: None. REVIEW OF SYSTEMS: As per HPI. Other systems negative. PHYSICAL EXAMINATION: On examination, patient is currently comfortable, awake. He is not in any acute distress. Blood pressure is 111/60, heart rate 74 per minute. Patient is afebrile. EXAMINATION OF THE HEART: S1, S2. EXAMINATION OF THE LUNGS: Bilateral breath sounds are heard. Abdomen is soft, morbidly obese. Examination of the lower extremities shows chronic skin changes, edema 1+ bilaterally. [employer] exam is grossly intact. LABS: Labs show sodium 141, potassium 4.7, BUN 39, serum creatinine 1.07. UA shows 1+ protein, large leukocyte esterase, WBCs 10, RBCs 34, blood small. ASSESSMENT: 1. Acute kidney injury secondary to hypotension, hypoperfusion and sepsis. The patient was maintained on Cozaar prior to admission. His blood pressure was also low with systolic in the 80s. He is currently on IV fluids, which I will continue. We will decrease the rate to about 80 mL an hour. 2. Hypotension, currently improved. Etiology sepsis. 3. Large perirectal abscess, status post I and D, being followed by Surgery and Infectious Disease, maintained on Zosyn. 4. Morbid obesity. 5. Type 2 diabetes, currently off of metformin. 6. History of hypertension, currently blood pressure is low. We will continue to hold off on the Cozaar. PLAN: Decrease IV fluids. Continue to hold off on antihypertensive medications. Continue to hold off on the metformin. Repeat labs in a.m. Avoid Toradol. Renal function is currently improved. Thank you for this consultation. We will continue to follow the patient with you during his hospitalization. MMODL / IJN: [id number] /
--- NOTE | 2017-10-09 15:24 | P.PN ---
<Pily Mendoza M - Last Filed: 10/09/17 15:31> Subjective Progress Note Date: 10/09/17 Pleasant 61-year-old male sitting up in a chair. Patient is voicing concerns about having a bowel movement. The dressing to the perirectal area inspected small amount of dried bloody drainage noted. Patient states passing gas no bowel movement no nausea no vomiting. Temp this morning 98 states urinating no difficulty Objective - Vital Signs Vital signs: Vital Signs Temp 98.0 F 10/09/17 12:00 Pulse 79 10/09/17 12:00 Resp 18 10/09/17 12:00 BP 123/57 10/09/17 12:00 Pulse Ox 95 10/09/17 12:00 Intake & Output 10/08/17 10/09/17 10/09/17 18:59 06:59 18:59 Intake Total 970 1086 Output Total 5 1400 250 Balance 965 -1400 836 Weight 179.3 kg Intake: IV 850 Intake, IV Titration 370 Amount Lactated Ringers 1,000 ml 320 @ 80 mls/hr IV .[id number] [facility] Rx#:[id number] Piperacillin-Tazobactam 3 50 .375 gm In Dextrose/Water 1 50ml.bag @ 12.5 mls/hr IVPB Q8H [facility] Rx#: [id number] Oral 120 716 Output: Urine 1400 250 Estimated Blood Loss 5 Other: Voiding Method Urinal Urinal Urinal # Voids 1 - Exam Physical exam Pleasant 61-year-old male sitting up in a chair states having significant less pain in the perirectal area since the procedure" Lungs adequate air movement bilaterally Heart S1-S2 audible regular Abdomen morbidly obese no nausea no vomiting states passing gas no stool urinating no difficulty Extremities generalized edema to the bilateral lower extremities Rectum perirectal dressing in place current dressing dry - Labs CBC & Chem 7: 10/08/17 05:24 10/09/17 06:09 Labs: Abnormal Lab Results - Last 24 Hours (Table) 10/08/17 10/08/17 10/09/17 Range/Units 16:38 20:48 06:09 BUN 39 H (9-20) mg/dL Glucose 140 H (74-99) mg/dL POC Glucose (mg/dL) 159 H 152 H (75-99) mg/dL 10/09/17 10/09/17 Range/Units 06:46 11:34 BUN (9-20) mg/dL Glucose (74-99) mg/dL POC Glucose (mg/dL) 157 H 152 H (75-99) mg/dL Microbiology - Last 24 Hours (Table) 10/08/17 09:25 Urine Culture - Final Urine,Clean Catch 10/08/17 13:40 Gram Stain - Preliminary Rectum Wound Culture - Preliminary 10/08/17 13:40 Anaerobic Culture - Preliminary Rectum 10/07/17 17:35 Blood Culture - Preliminary Blood No Growth after 24 hours Assessment and Plan Assessment: Impression Type 2 diabetes Acute kidney injury secondary to hypotension, hypoperfusion and sepsis Present on admission rectal pain suspect due to a large perirectal abscess Super morbid obesity BMI 65 Present on admission febrile leukocytosis sirs criteria for sepsis suspect due to a perirectal abscess Incision and drainage of a perirectal abscess done on October 08 Plan Continue wound care as ordered iodoform packing daily Pain control Continue postop surgical care IV fluid per nephrology IV antibiotics per infectious disease DVT and GI prophylaxis Repeat labs in the morning The above impression and plan of care have been discussed and directed by signing physician. Pily Mendoza nurse practitioner acting as scribe for signing physician. <Davin Briones - Last Filed: 10/09/17 21:20> Objective - Vital Signs Vital signs: Vital Signs Temp 99.1 F 10/09/17 16:00 Pulse 75 10/09/17 16:00 Resp 18 10/09/17 16:00 BP 127/61 10/09/17 16:00 Pulse Ox 99 10/09/17 16:00 Intake & Output 10/09/17 10/09/17 10/10/17 06:59 18:59 06:59 Intake Total 1558 Output Total 1400 250 Balance -1400 1308 Weight 179.3 kg Intake: Intake, IV Titration 370 Amount Lactated Ringers 1,000 ml 320 @ 80 mls/hr IV .[id number] [facility] Rx#:[id number] Piperacillin-Tazobactam 3 50 .375 gm In Dextrose/Water 1 50ml.bag @ 12.5 mls/hr IVPB Q8H [facility] Rx#: [id number] Oral 1188 Output: Urine 1400 250 Other: Voiding Method Urinal Urinal # Voids 1 1 - Labs CBC & Chem 7: 10/08/17 05:24 10/09/17 06:09 Labs: Abnormal Lab Results - Last 24 Hours (Table) 10/09/17 10/09/17 10/09/17 Range/Units 06:09 06:46 11:34 BUN 39 H (9-20) mg/dL Glucose 140 H (74-99) mg/dL POC Glucose (mg/dL) 157 H 152 H (75-99) mg/dL 10/09/17 10/09/17 Range/Units 16:35 20:34 BUN (9-20) mg/dL Glucose (74-99) mg/dL POC Glucose (mg/dL) 168 H 212 H (75-99) mg/dL Microbiology - Last 24 Hours (Table) 10/07/17 17:35 Blood Culture - Preliminary Blood No Growth after 48 hours 10/08/17 13:40 Gram Stain - Preliminary Rectum Wound Culture - Preliminary Gram Neg Bacilli 10/08/17 09:25 Urine Culture - Final Urine,Clean Catch 10/08/17 13:40 Anaerobic Culture - Preliminary Rectum Assessment and Plan Assessment: As above. Patient doing well today. Pain is much improved. Still no bowel movement however. Is passing gas. We'll add magnesium citrate. Begin dressing changes. (1) Perirectal abscess Current Visit: Yes Status: Acute Code(s): K61.1 - RECTAL ABSCESS SNOMED Code(s): 75142598
[2017-10-09 16:37] LABS: Glucose,Whole Blood 168 mg/dL (75-99)
[2017-10-09] MEDS: HEPARIN SODIUM,PORCINE 5,000 UNIT/ML 1 ML VIAL SQ SCH ×2 (19:05→23:32)
--- NOTE | 2017-10-09 20:18 | PN ---
PROGRESS NOTE DATE OF SERVICE: 10/09/2017 REASON FOR FOLLOWUP: The patient with rectal abscess. INTERVAL HISTORY: The patient is currently afebrile. Pain to the perirectal area has improved. Denies having any chest pain or shortness of breath, cough, abdominal pain, did not have any bowel movement. EXAMINATION: Blood pressure 123/57 with a pulse of 79, temperature of 98. He is 95% on 4 L nasal cannula. General description is a middle-aged male up in the chair in no distress. RESPIRATORY SYSTEM: Unlabored breathing, clear to auscultation anteriorly. HEART: S1, S2. Regular rate and rhythm. ABDOMEN: Soft, no tenderness. LABS: BUN of 39, creatinine 1.07. The perirectal culture showing a gram-negative bacilli. DIAGNOSTIC IMPRESSION AND PLAN: Patient with a perirectal abscess, status post drainage, more likely secondary to gut origin with culture showing gram-negative on Zosyn that will be continued. Waiting for the final ID of this pathogen and clinical response determine his discharge antibiotics. Continue supportive care. MMODL / IJN: [id number] /
[2017-10-09 20:36] LABS: Glucose,Whole Blood 212 mg/dL (75-99)
[2017-10-09] MEDS: FAMOTIDINE 20 MG TAB PO SCH (21:12)
[2017-10-09] MEDS: INSULIN ASPART 100 UNIT/ML 1 ML 10 ML VIAL SQ SCH (21:13)
[2017-10-09] MEDS: DOCUSATE 100 MG CAP PO SCH (21:13)
[2017-10-09] MEDS ORDERED: MAGNESIUM CITRATE 296 ML BOTTLE PO ONE (21:20)
[2017-10-10 02:44] LABS: Hemoglobin A1C 6.7 % (4.0-6.0)
[2017-10-10] MEDS: PIPERACILLIN-TAZOBACTAM 3.375 GM in DEXTROSE/WATER 1 50ML.BAG IVPB SCH ×3 (03:35→17:24)
[2017-10-10 06:20] LABS: Glucose,Whole Blood 145 mg/dL (75-99)
[2017-10-10] MEDS: INSULIN ASPART 100 UNIT/ML 1 ML 10 ML VIAL SQ SCH ×4 (07:00→22:08)
[2017-10-10 07:07] LABS: Basophils % (A) 0 %; Eosinophils # (A) 0.1 k/uL (0-0.7); Eosinophils % (A) 2 %; HCT 42.6 % (39.0-53.0); HGB 13.6 gm/dL (13.0-17.5); Lymphocytes # (A) 0.6 k/uL (1.0-4.8); Lymphocytes % (A) 10 %; MCH 28.9 pg (25.0-35.0); MCHC 31.8 g/dL (31.0-37.0); MCV 90.7 fL (80.0-100.0); Mean Platelet Volume 8.8; Monocytes # (A) 0.5 k/uL (0-1.0); Monocytes % (A) 8 %; Neutrophils # (A) 4.8 k/uL (1.3-7.7); Neutrophils % (A) 77 %; Platelet Count 151 k/uL (150-450); RBC 4.69 m/uL (4.30-5.90); RDW 15.4 % (11.5-15.5); WBC 6.2 k/uL (3.8-10.6)
[2017-10-10 07:55] LABS: Anion Gap 11 mmol/L; Blood Urea Nitrogen 23 mg/dL (9-20); Calcium 8.7 mg/dL (8.4-10.2); Carbon Dioxide 30 mmol/L (22-30); Chloride 103 mmol/L (98-107); Glucose 134 mg/dL (74-99); Potassium 5.1 mmol/L (3.5-5.1); Sodium 144 mmol/L (137-145)
[2017-10-10] MEDS: HEPARIN SODIUM,PORCINE 5,000 UNIT/ML 1 ML VIAL SQ SCH ×2 (08:51→17:24)
[2017-10-10] MEDS: FAMOTIDINE 20 MG TAB PO SCH ×2 (08:51→20:09)
[2017-10-10] MEDS: DOCUSATE 100 MG CAP PO SCH ×2 (08:51→20:09)
[2017-10-10] MEDS: PSYLLIUM HUSK 100% 6 GM PACKET PO SCH (09:07)
[2017-10-10] MEDS: 0.9% NACL WITH KCL 20 MEQ/L 1,000 ML IV SCH (09:08)
[2017-10-10 11:36] LABS: Glucose,Whole Blood 138 mg/dL (75-99)
--- NOTE | 2017-10-10 12:18 | P.PN ---
<Pily Mendoza - Last Filed: 10/10/17 12:12> Subjective Progress Note Date: 10/10/17 62-year-old male sitting up in a chair states he has not had a bowel movement yet passing gas. Urinating no difficulty. Iodoform packing in place a moderate amount of..purulent drainage. Postop October 08 incision and drainage of a perirectal abscess Objective - Vital Signs Vital signs: Vital Signs Temp 99.1 F 10/10/17 04:00 Pulse 71 10/10/17 08:00 Resp 19 10/10/17 08:00 BP 121/63 10/10/17 08:00 Pulse Ox 96 10/10/17 08:00 Intake & Output 10/09/17 10/10/17 10/10/17 18:59 06:59 18:59 Intake Total 1558 200 180 Output Total 250 Balance 1308 200 180 Weight 183.8 kg Intake: Intake, IV Titration 370 Amount Lactated Ringers 1,000 ml 320 @ 80 mls/hr IV .[id number] [facility] Rx#:[id number] Piperacillin-Tazobactam 3 50 .375 gm In Dextrose/Water 1 50ml.bag @ 12.5 mls/hr IVPB Q8H [facility] Rx#: [id number] Oral 1188 200 180 Output: Urine 250 Other: Voiding Method Urinal Urinal Urinal # Voids 1 2 - Exam Physical exam Pleasant 61-year-old male sitting up in a chair voicing concern no bowel movement Lungs adequate air movement bilaterally no shortness of breath noted no cough Heart S1-S2 audible regular denies chest pain Abdomen morbidly obese no nausea no vomiting states passing gas no stool urinating no difficulty Extremities generalized edema to the bilateral lower extremities Rectum perirectal iodoform packing to surgical site moderate amount of serous purulent drainage noted no older less redness to the bilateral upper buttocks - Labs CBC & Chem 7: 10/10/17 06:31 10/10/17 06:31 Labs: Abnormal Lab Results - Last 24 Hours (Table) 10/09/17 10/09/17 10/09/17 Range/Units 05:24 16:35 20:34 Lymphocytes # (1.0-4.8) k/uL BUN (9-20) mg/dL Glucose (74-99) mg/dL POC Glucose (mg/dL) 168 H 212 H (75-99) mg/dL Hemoglobin A1c 6.7 H (4.0-6.0) % 10/10/17 10/10/17 10/10/17 Range/Units 06:10 06:31 06:31 Lymphocytes # 0.6 L (1.0-4.8) k/uL BUN 23 H (9-20) mg/dL Glucose 134 H (74-99) mg/dL POC Glucose (mg/dL) 145 H (75-99) mg/dL Hemoglobin A1c (4.0-6.0) % 10/10/17 Range/Units 11:34 Lymphocytes # (1.0-4.8) k/uL BUN (9-20) mg/dL Glucose (74-99) mg/dL POC Glucose (mg/dL) 138 H (75-99) mg/dL Hemoglobin A1c (4.0-6.0) % Microbiology - Last 24 Hours (Table) 10/07/17 17:35 Blood Culture - Preliminary Blood No Growth after 48 hours 10/08/17 13:40 Gram Stain - Preliminary Rectum Wound Culture - Preliminary Gram Neg Bacilli 10/08/17 09:25 Urine Culture - Final Urine,Clean Catch Assessment and Plan Assessment: Impression Type 2 diabetes Acute kidney injury secondary to hypotension, hypoperfusion and sepsis Present on admission rectal pain suspect due to a large perirectal abscess Super morbid obesity BMI 65 Present on admission febrile leukocytosis sirs criteria for sepsis suspect due to a perirectal abscess Incision and drainage of a perirectal abscess done on October 08 Plan give a bottle of citrate of magnesia if no bowel movement Continue wound care as ordered iodoform packing daily Pain control Continue postop surgical care IV fluid per nephrology IV antibiotics per infectious disease DVT and GI prophylaxis Repeat labs in the morning The above impression and plan of care have been discussed and directed by signing physician. Pily Mendoza nurse practitioner acting as scribe for signing physician. <Davin Briones - Last Filed: 10/10/17 17:19> Objective - Vital Signs Vital signs: Vital Signs Temp 97 F L 10/10/17 16:00 Pulse 73 10/10/17 16:00 Resp 18 10/10/17 16:00 BP 136/74 10/10/17 16:00 Pulse Ox 97 10/10/17 16:00 Intake & Output 10/09/17 10/10/17 10/10/17 18:59 06:59 18:59 Intake Total 1558 200 450 Output Total 250 Balance 1308 200 450 Weight 183.8 kg Intake: IV 120 0.9 ns 120 Intake, IV Titration 370 50 Amount Lactated Ringers 1,000 ml 320 @ 80 mls/hr IV .[id number] [facility] Rx#:[id number] Piperacillin-Tazobactam 3 50 50 .375 gm In Dextrose/Water 1 50ml.bag @ 12.5 mls/hr IVPB Q8H [facility] Rx#: [id number] Oral 1188 200 280 Output: Urine 250 Other: Voiding Method Urinal Urinal Urinal # Voids 1 2 - Labs CBC & Chem 7: 10/10/17 06:31 10/10/17 06:31 Labs: Abnormal Lab Results - Last 24 Hours (Table) 10/09/17 10/09/17 10/10/17 Range/Units 05:24 20:34 06:10 Lymphocytes # (1.0-4.8) k/uL BUN (9-20) mg/dL Glucose (74-99) mg/dL POC Glucose (mg/dL) 212 H 145 H (75-99) mg/dL Hemoglobin A1c 6.7 H (4.0-6.0) % 10/10/17 10/10/17 10/10/17 Range/Units 06:31 06:31 11:34 Lymphocytes # 0.6 L (1.0-4.8) k/uL BUN 23 H (9-20) mg/dL Glucose 134 H (74-99) mg/dL POC Glucose (mg/dL) 138 H (75-99) mg/dL Hemoglobin A1c (4.0-6.0) % 10/10/17 Range/Units 16:44 Lymphocytes # (1.0-4.8) k/uL BUN (9-20) mg/dL Glucose (74-99) mg/dL POC Glucose (mg/dL) 140 H (75-99) mg/dL Hemoglobin A1c (4.0-6.0) % Microbiology - Last 24 Hours (Table) 10/07/17 17:35 Blood Culture - Preliminary Blood No Growth after 48 hours 10/08/17 13:40 Gram Stain - Preliminary Rectum Wound Culture - Preliminary Gram Neg Bacilli Assessment and Plan Assessment: As above. Patient remains constipated. He is passing flatus. His packing was changed today. His pain is much improved. Cultures remain pending. (1) Perirectal abscess Current Visit: Yes Status: Acute Code(s): K61.1 - RECTAL ABSCESS SNOMED Code(s): 50020814
--- NOTE | 2017-10-10 12:26 | P.CNPUL ---
History of Present Illness Consult date: 10/10/17 Reason for consult: other Chief complaint: Sleep apnea syndrome History of present illness: Pulmonary consult dated 10/10/2017 This is a very pleasant 61-year-old obese male who apparently presents from an outside hospital for evaluation of fever and confusion. He was apparently found have a rectal abscess. We are asked to see him because he has symptoms and signs of sleep apnea syndrome. He states he's been having issues for years. Doesn't sleep well at nighttime. Has excessive daytime sleepiness. I' m not sure whether or not he is a loud snorer or not. Anyway, the patient will need a outpatient sleep evaluation. We'll see if we can get an [facility] with my partner, , who is our sleep expert. The patient apparently has a history of obesity hypertension diabetes heart failure. His outpatient medications include low-dose aspirin Farxiga Lasix Amaryl Cozaar Hytrin Norvasc and metformin. He has no ALLERGIES. He is a lifelong nonsmoker and does not have any history of any lung disease. He does use oxygen at home and a couple liters 24/7. This is presumably secondary to pickwickian syndrome. Review of Systems A 12 point review of systems is positive for excessive daytime sleepiness and poor sleep hygiene. Past Medical History Past Medical History: Heart Failure, Diabetes Mellitus, Hypertension History of Any Multi-Drug Resistant Organisms: None Reported Past Surgical History: No Surgical Hx Reported Past Psychological History: No Psychological Hx Reported Smoking Status: Never smoker Past Alcohol Use History: None Reported Past Drug Use History: None Reported Medications and Allergies Home Medications Medication Instructions Recorded Confirmed Type Aspirin EC [Ecotrin Low Dose] 81 mg PO DAILY 10/07/17 10/07/17 History Dapagliflozin Propanediol [Farxiga] 10 mg PO DAILY 10/07/17 10/07/17 History Furosemide [Lasix] 40 mg PO DAILY 10/07/17 10/07/17 History Glimepiride [Amaryl] 4 mg PO DAILY 10/07/17 10/07/17 History Losartan Potassium [Cozaar] 100 mg PO DAILY 10/07/17 10/07/17 History Terazosin [Hytrin] 5 mg PO DAILY 10/07/17 10/07/17 History amLODIPine [Norvasc] 10 mg PO DAILY 10/07/17 10/07/17 History metFORMIN HCL 1,000 mg PO BID 10/07/17 10/07/17 History Allergies Allergy/AdvReac Type Severity Reaction Status Date / Time No Known Allergies Allergy Verified 10/07/17 17:59 Physical Exam Osteopathic Statement: *. No significant issues noted on an osteopathic structural exam other than those noted in the History and Physical/Consult. Vitals: Vital Signs Temp Pulse Resp BP Pulse Ox 10/10/17 08:00 71 19 121/63 96 10/10/17 04:00 99.1 F 77 17 128/69 96 10/10/17 00:00 70 17 10/09/17 23:58 97.8 F 70 17 120/59 97 10/09/17 20:00 97.8 F 78 17 125/60 97 10/09/17 16:00 99.1 F 75 18 127/61 99 Intake and Output 10/09/17 10/10/17 10/10/17 22:59 06:59 14:59 Intake Total 472 200 180 Balance 472 200 180 Intake: Oral 472 200 180 Other: Voiding Method Urinal Urinal Urinal # Voids 1 2 Weight 183.8 kg No acute distress, oriented 3. The patient is on oxygen a couple liters. He is significantly obese. HEENT examination is grossly unremarkable. Mucous membranes are moist. No oral lesions. Neck supple. Full range of motion. No adenopathy thyromegaly or neck vein distention. Cardiovascular examination reveals regular rhythm rate. S1-S2 normal. No S3 or S4. No discernible murmur noted. Lungs reveal clear breath sounds. Her sounds are equal bilaterally. No adventitious lung sounds including wheezes rhonchi or crackles. Abdomen soft bowel sounds are heard. No masses or tenderness. Extremities are intact. No cyanosis clubbing or edema. Skin is without rash or lesion. Neurologic examination is brief but nonfocal. Results - Laboratory Findings CBC and BMP: 10/10/17 06:31 10/10/17 06:31 Abnormal lab findings: Abnormal Labs 10/07/17 10/07/17 10/07/17 17:35 17:35 17:35 WBC 18.7 H Plt Count 146 L Neutrophils # 17.3 H Lymphocytes # 0.4 L BUN 31 H Creatinine 1.30 H Glucose 148 H POC Glucose (mg/dL) Hemoglobin A1c Plasma Lactic Acid Ryan 2.1 H* Total Bilirubin 2.3 H Delta Bilirubin AST 69 H Total Creatine Kinase CK-MB (CK-2) Troponin I Urine Protein Urine Glucose (UA) Urine Blood Ur Leukocyte Esterase Urine RBC Urine WBC Urine Bacteria Urine Mucus 10/07/17 10/07/17 10/08/17 17:35 23:28 05:24 WBC 15.2 H Plt Count 139 L Neutrophils # 13.3 H Lymphocytes # 0.9 L BUN Creatinine Glucose POC Glucose (mg/dL) Hemoglobin A1c Plasma Lactic Acid Ryan Total Bilirubin 2.4 H Delta Bilirubin 1.2 H AST Total Creatine Kinase 221 H CK-MB (CK-2) Troponin I 0.131 H* Urine Protein Urine Glucose (UA) Urine Blood Ur Leukocyte Esterase Urine RBC Urine WBC Urine Bacteria Urine Mucus 10/08/17 10/08/17 10/08/17 05:24 05:24 06:12 WBC Plt Count Neutrophils # Lymphocytes # BUN 41 H Creatinine 1.60 H Glucose 100 H POC Glucose (mg/dL) 111 H Hemoglobin A1c Plasma Lactic Acid Ryan Total Bilirubin Delta Bilirubin AST Total Creatine Kinase 281 H CK-MB (CK-2) 3.3 H* Troponin I 0.132 H* Urine Protein Urine Glucose (UA) Urine Blood Ur Leukocyte Esterase Urine RBC Urine WBC Urine Bacteria Urine Mucus 10/08/17 10/08/17 10/08/17 09:25 11:39 11:43 WBC Plt Count Neutrophils # Lymphocytes # BUN Creatinine Glucose POC Glucose (mg/dL) 114 H Hemoglobin A1c Plasma Lactic Acid Ryan Total Bilirubin Delta Bilirubin AST Total Creatine Kinase CK-MB (CK-2) Troponin I 0.105 H* Urine Protein 1+ H Urine Glucose (UA) 4+ H Urine Blood Small H Ur Leukocyte Esterase Large H Urine RBC 34 H Urine WBC 10 H Urine Bacteria Occasional H Urine Mucus Rare H 10/08/17 10/08/17 10/09/17 16:38 20:48 05:24 WBC Plt Count Neutrophils # Lymphocytes # BUN Creatinine Glucose POC Glucose (mg/dL) 159 H 152 H Hemoglobin A1c 6.7 H Plasma Lactic Acid Ryan Total Bilirubin Delta Bilirubin AST Total Creatine Kinase CK-MB (CK-2) Troponin I Urine Protein Urine Glucose (UA) Urine Blood Ur Leukocyte Esterase Urine RBC Urine WBC Urine Bacteria Urine Mucus 10/09/17 10/09/17 10/09/17 06:09 06:46 11:34 WBC Plt Count Neutrophils # Lymphocytes # BUN 39 H Creatinine Glucose 140 H POC Glucose (mg/dL) 157 H 152 H Hemoglobin A1c Plasma Lactic Acid Ryan Total Bilirubin Delta Bilirubin AST Total Creatine Kinase CK-MB (CK-2) Troponin I Urine Protein Urine Glucose (UA) Urine Blood Ur Leukocyte Esterase Urine RBC Urine WBC Urine Bacteria Urine Mucus 10/09/17 10/09/17 10/10/17 16:35 20:34 06:10 WBC Plt Count Neutrophils # Lymphocytes # BUN Creatinine Glucose POC Glucose (mg/dL) 168 H 212 H 145 H Hemoglobin A1c Plasma Lactic Acid Ryan Total Bilirubin Delta Bilirubin AST Total Creatine Kinase CK-MB (CK-2) Troponin I Urine Protein Urine Glucose (UA) Urine Blood Ur Leukocyte Esterase Urine RBC Urine WBC Urine Bacteria Urine Mucus 10/10/17 10/10/17 10/10/17 06:31 06:31 11:34 WBC Plt Count Neutrophils # Lymphocytes # 0.6 L BUN 23 H Creatinine Glucose 134 H POC Glucose (mg/dL) 138 H Hemoglobin A1c Plasma Lactic Acid Ryan Total Bilirubin Delta Bilirubin AST Total Creatine Kinase CK-MB (CK-2) Troponin I Urine Protein Urine Glucose (UA) Urine Blood Ur Leukocyte Esterase Urine RBC Urine WBC Urine Bacteria Urine Mucus - Diagnostic Findings Chest x-ray: report reviewed (Labs x-rays and medications are reviewed.), image reviewed Assessment and Plan Assessment: Assessment Probable sleep apnea syndrome Probable/possible pickwickian syndrome. Morbid obesity History of heart failure History of diabetes mellitus History of hypertension Plan: Plan dated 10/10/2017 We will attempt to make an appointment for him to see the sleep specialist up at the [place] [facility]. That would be my partner Dr. Guzman. We'll see if we can get him an appointment. No additional recommendations are made. We'll continue to follow. He has no history of any intrinsic lung disease. He may also suffer from pickwickian syndrome. Time with Patient: Greater than 30
--- NOTE | 2017-10-10 13:31 | ECHOF ---
Referral Reason:abnormal troponin MEASUREMENTS -------- HEIGHT: 165.1 cm WEIGHT: 183.7 kg BP: 121/63 RVIDd: 2.9 cm (< 3.3) IVSd: 1.4 cm (0.6 - 1.1) LVIDd: 5.2 cm (3.9 - 5.3) LVPWd: 1.4 cm (0.6 - 1.1) IVSs: 1.7 cm LVIDs: 4.0 cm LVPWs: 1.6 cm LAESV Index (A-L): 40.49 ml/m Ao Diam: 3.3 cm (2.0 - 3.7) AV Cusp: 1.3 cm (1.5 - 2.6) LA Diam: 3.5 cm (2.7 - 3.8) EPSS: 1.2 cm MV E Suresh: 1.10 m/s MV DecT: 244 ms MV A Suresh: 0.79 m/s MV E/A Ratio: 1.40 AV maxP.57 mmHg AV meanP.69 mmHg RAP: 5.00 mmHg RVSP: 8.75 mmHg MV EF SLOPE: 48.42 mm/s (70 - 150) MV EXCURSION: 1.75 cm (> 18.000) FINDINGS -------- Sinus rhythm. This was a technically difficult study with suboptimal views. The left ventricular size is normal. There is moderate concentric left ventricular hypertrophy. O verall left ventricular systolic function is normal with, an EF between 55 - 60 %. The right ventricle is normal in size and function. LA is moderately dilated 34-39 ml/m2 RA appears enlarged. 5ml of Lumason was utilized for enhancement of images. There is mild aortic valve sclerosis. There is mild aortic stenosis present. Peak/mean gradient a cross the Aortic Valve is 15.57mmHg / 9.69mmHg. The mitral valve leaflets are mildly thickened. There is trace to mild mitral regurgitation. Trace tricuspid regurgitation present. Right ventricular systolic pressure is normal at < 35 mmHg. There is no evidence of pulmonary hypertension. Trace/mild (physiologic) pulmonic regurgitation. The aortic root size is normal. Normal inferior vena cava with normal inspiratory collapse consistent with estimated right atrial pre ssure of 5 mmHg. There is no pericardial effusion. CONCLUSIONS -------- 1. Sinus rhythm. 2. This was a technically difficult study with suboptimal views. 3. The left ventricular size is normal. 4. There is moderate concentric left ventricular hypertrophy. 5. Overall left ventricular systolic function is normal with, an EF between 55 - 60 %. 6. LA is moderately dilated 34-39 ml/m2 7. RA appears enlarged. 8. 5ml of Lumason was utilized for enhancement of images. 9. There is mild aortic valve sclerosis. 10. There is mild aortic stenosis present. 11. Peak/mean gradient across the Aortic Valve is 15.57mmHg / 9.69mmHg. 12. The mitral valve leaflets are mildly thickened. 13. There is trace to mild mitral regurgitation. 14. Trace tricuspid regurgitation present. 15. Right ventricular systolic pressure is normal at < 35 mmHg. 16. There is no evidence of pulmonary hypertension. 17. Trace/mild (physiologic) pulmonic regurgitation. 18. The aortic root size is normal. 19. There is no pericardial effusion. FORM DESIGNER: Mak Garcia RDCS
[2017-10-10] MEDS ORDERED: MAGNESIUM CITRATE 296 ML BOTTLE PO ONE (14:32)
--- NOTE | 2017-10-10 15:46 | PN ---
PROGRESS NOTE The patient is seen for followup for acute kidney injury. His renal function has improved significantly with creatinine going down from 1.6 to 0.78 mg/dL. The patient is maintained on IV fluids. PHYSICAL EXAMINATION: On examination today, blood pressure was 128/69, heart rate 77 per minute. He is afebrile. Examination shows chronic skin changes bilateral lower extremities. He is currently having his perirectal dressing being changed. Abdomen is soft, morbidly obese. LAB: Show sodium 144, potassium 5.1, BUN 23, serum creatinine 0.78, hemoglobin 13.6 g/dL. ASSESSMENT: 1. Acute kidney injury nonoliguric secondary to hypotension, hypoperfusion and sepsis currently improved significantly with renal function at baseline and normal. I will decrease the IV fluids. 2. Hypotension secondary to sepsis. 3. Large perirectal abscess status post I and D and maintained on antibiotics. 4. Type 2 diabetes. 5. History of hypertension. PLAN: Decrease IV fluids. Continue to hold off on antihypertensive medications for now. Continue to avoid nephrotoxic agents. Encourage increased oral intake. MMODL / IJN: [id number] /
[2017-10-10] MEDS: SODIUM CHLORIDE 0.9% 1,000 ML IV SCH (16:02)
[2017-10-10 16:50] LABS: Glucose,Whole Blood 140 mg/dL (75-99)
--- NOTE | 2017-10-10 20:19 | PN ---
PROGRESS NOTE DATE OF SERVICE: 10/09/2017 PRESENTING COMPLAINT: Rectal surgery. INTERVAL HISTORY: This patient was seen by me yesterday. He presented with perirectal abscess. I&D was carried out. He is feeling much better. Sitting up, tolerating a diet. Took a laxative. Patient was not able to remember the name of the wine maker he is going to see. REVIEW OF SYSTEMS: Done for constitutional, cardiovascular, GI, pulmonary; relevant findings as above. CURRENT MEDICATIONS: Reviewed. They include IV Zosyn. PHYSICAL EXAMINATION: Temperature 99.1, pulse 75, respiration 18, blood pressure 127/61, pulse ox 99% on 4 L. GENERAL APPEARANCE: Sitting up, awake. EYES: Pupils equal. Conjunctivae normal. HEENT: External appearance of nose and ears normal. Oral cavity normal. NECK: JVD unable to assess. Mass not palpable. RESPIRATORY: Effort increased. LUNGS: Distant breath sounds. CARDIOVASCULAR: Heart sounds muffled. Edema present. ABDOMEN: Soft, nontender. Liver and spleen not palpable. PSYCHIATRY: Alert and oriented x3. Mood and affect normal. INVESTIGATIONS: Potassium 4.7, BUN 39, creatinine 1.07. Patient's cultures are growing Proteus mirabilis. Abdominal ultrasound unremarkable. ASSESSMENT: 1. Perirectal abscess causing sepsis, present on admission, in a diabetic patient, status post incision and drainage. 2. Diabetes mellitus, type 2, on oral hypoglycemic. 3. Morbid obesity with body mass index 65.3. 4. Obesity hypoventilation syndrome. 5. Chronic lower extremity edema, possibly venous insufficiency. 6. Primary osteoarthritis in multiple joints, bilateral. 7. Renal failure, possibly prerenal. 8. Troponin leak from hemodynamic mismatch. PLAN: Continue with current antibiotic and treatment plan. Both patient's Cozaar and Lasix have been held. Will get a consultation from Dr. Ayoub from Pulmonary. Care was discussed with the patient. Wound care to continue per Dr. Briones. MMODL / IJN: [id number] /
--- NOTE | 2017-10-10 20:19 | PN ---
PROGRESS NOTE DATE OF SERVICE: 10/10/2017 PRESENTING COMPLAINT: Rectal abscess. INTERVAL HISTORY: Patient is status post I&D of rectal abscess. Looking better. Tolerating his diet. Pain is controlled. Sitting up. REVIEW OF SYSTEMS: Done for constitutional, cardiovascular, GI, pulmonary; relevant findings as above. CURRENT MEDICATIONS: Reviewed. They include IV Zosyn. PHYSICAL EXAMINATION: Temperature 99.1, pulse 77, respiration 17, blood pressure 128/69, pulse ox 96% on 4 L. GENERAL APPEARANCE: Sitting up, awake. EYES: Pupils equal. Conjunctivae normal. HEENT: External appearance of nose and ears normal. Oral cavity normal. NECK: JVD not raised. Mass not palpable. RESPIRATORY: Effort increased. LUNGS: Distant breath sounds. CARDIOVASCULAR Heart sounds muffled. Edema present. ABDOMEN: Soft, nontender. Liver and spleen not palpable. PSYCHIATRY: Alert and oriented x3. Mood and affect normal. INVESTIGATIONS: White count 6.2, potassium 5.1, creatinine 0.78. Two-D echo shows preserved LV function; no right ventricular strain. ASSESSMENT: 1. Severe perirectal abscess causing sepsis, present on admission, in a diabetic patient. Cultures growing Proteus mirabilis, status post I&D. 2. Diabetes mellitus, type 2, on oral hypoglycemic. 3. Morbidly obese; body mass index 65.3. 4. Bilateral lower extremity venous insufficiency. 5. Primary osteoarthritis in multiple joints, bilateral. 6. Acute renal failure, likely prerenal/acute tubular necrosis from sepsis, improving. 7. Troponin leak from hemodynamic mismatch. No evidence of acute coronary syndrome. PLAN: Continue current medication and treatment plan. Patient is clinically improving. He was seen by Dr. Ayoub; not for any intervention right now. Zosyn is to be continued. Care was discussed with the patient. MMODL / IJN: [id number] /
[2017-10-10 21:13] LABS: Glucose,Whole Blood 149 mg/dL (75-99)
--- NOTE | 2017-10-10 23:16 | PN ---
PROGRESS NOTE DATE OF SERVICE: 10/10/2017 REASON FOR FOLLOWUP: Perirectal abscess, Gram-negative. INTERVAL HISTORY: The patient is afebrile. He is breathing comfortably. Denies having any chest pain or cough. No abdominal pain or any diarrhea. PHYSICAL EXAMINATION: Blood pressure is 132/74 with a pulse of 70, temperature 98.4. He is 97% on 4 L nasal cannula. General description is a middle-aged male up in the chair in no distress. RESPIRATORY SYSTEM: Unlabored breathing. Clear to auscultation anteriorly. HEART: S1, S2. Regular rate and rhythm. ABDOMEN: Soft. No tenderness. LABS: The peritoneal culture finalized with Proteus mirabilis, which is a sensitive pathogen. BUN of 23, creatinine 0.78. DIAGNOSTIC IMPRESSION AND PLAN: Patient with a perirectal abscess, status post drainage; culture with Proteus mirabilis that is a sensitive pathogen. Antibiotic will be adjusted to Unasyn 3 grams q.6. Will re-evaluate the wound tomorrow. Continue with supportive care. MMODL / FAWADN: [id number] /
[2017-10-11] MEDS: HEPARIN SODIUM,PORCINE 5,000 UNIT/ML 1 ML VIAL SQ SCH ×4 (00:12→23:46)
[2017-10-11] MEDS: PIPERACILLIN-TAZOBACTAM 3.375 GM in DEXTROSE/WATER 1 50ML.BAG IVPB SCH ×2 (03:00→13:02)
[2017-10-11 05:37] LABS: Glucose,Whole Blood 140 mg/dL (75-99)
[2017-10-11] MEDS: INSULIN ASPART 100 UNIT/ML 1 ML 10 ML VIAL SQ SCH ×4 (06:58→22:04)
[2017-10-11 07:35] LABS: Anion Gap 8 mmol/L; Basophils % (A) 1 %; Blood Urea Nitrogen 21 mg/dL (9-20); Calcium 8.8 mg/dL (8.4-10.2); Carbon Dioxide 34 mmol/L (22-30); Chloride 102 mmol/L (98-107); Eosinophils # (A) 0.2 k/uL (0-0.7); Eosinophils % (A) 4 %; Glucose 138 mg/dL (74-99); HCT 44.6 % (39.0-53.0); HGB 14.5 gm/dL (13.0-17.5); Lymphocytes # (A) 0.9 k/uL (1.0-4.8); Lymphocytes % (A) 16 %; MCH 29.2 pg (25.0-35.0); MCHC 32.4 g/dL (31.0-37.0); MCV 90.2 fL (80.0-100.0); Mean Platelet Volume 8.2; Monocytes # (A) 0.4 k/uL (0-1.0); Monocytes % (A) 8 %; Neutrophils # (A) 3.9 k/uL (1.3-7.7); Neutrophils % (A) 70 %; Platelet Count 149 k/uL (150-450); Potassium 5.2 mmol/L (3.5-5.1); RBC 4.94 m/uL (4.30-5.90); RDW 15.2 % (11.5-15.5); Sodium 144 mmol/L (137-145); WBC 5.7 k/uL (3.8-10.6)
[2017-10-11] MEDS: DOCUSATE 100 MG CAP PO SCH ×2 (08:38→22:04)
[2017-10-11] MEDS: FAMOTIDINE 20 MG TAB PO SCH ×2 (08:38→22:03)
[2017-10-11] MEDS: PSYLLIUM HUSK 100% 6 GM PACKET PO SCH (08:47)
--- NOTE | 2017-10-11 09:06 | P.PN ---
Subjective Progress Note Date: 10/11/17 Principal diagnosis: Perirectal abscess Patient doing well today. Pain is a 1 out of 10. He is afebrile. Packing twice in the last 12 hours. 2-3 bowel movement. Objective - Vital Signs Vital signs: Vital Signs Temp 99.8 F H 10/11/17 09:00 Pulse 71 10/11/17 09:00 Resp 18 10/11/17 09:00 BP 144/79 10/11/17 09:00 Pulse Ox 96 10/11/17 09:00 Intake & Output 10/10/17 10/11/17 10/11/17 18:59 06:59 18:59 Intake Total 550 890 200 Balance 550 890 200 Weight 184.4 kg Intake: IV 120 0.9 ns 120 Intake, IV Titration 50 690 80 Amount Lactated Ringers 1,000 ml 640 @ 80 mls/hr IV .[id number] [facility] Rx#:[id number] Piperacillin-Tazobactam 3 50 50 .375 gm In Dextrose/Water 1 50ml.bag @ 12.5 mls/hr IVPB Q8H [facility] Rx#: [id number] Sodium Chloride 0.9% 1, 80 000 ml @ 40 mls/hr IV . Q24H [facility] Rx#:[id number] Oral 380 200 120 Other: Voiding Method Urinal Urinal # Voids 2 1 # Bowel Movements 1 1 - Exam Perirectal wound site clean with minimal tenderness - Labs CBC & Chem 7: 10/11/17 06:33 10/11/17 06:33 Labs: Abnormal Lab Results - Last 24 Hours (Table) 10/10/17 10/10/17 10/10/17 Range/Units 11:34 16:44 21:12 Plt Count (150-450) k/uL Lymphocytes # (1.0-4.8) k/uL Potassium (3.5-5.1) mmol/L Carbon Dioxide (22-30) mmol/L BUN (9-20) mg/dL Glucose (74-99) mg/dL POC Glucose (mg/dL) 138 H 140 H 149 H (75-99) mg/dL 10/11/17 10/11/17 10/11/17 Range/Units 05:35 06:33 06:33 Plt Count 149 L (150-450) k/uL Lymphocytes # 0.9 L (1.0-4.8) k/uL Potassium 5.2 H (3.5-5.1) mmol/L Carbon Dioxide 34 H (22-30) mmol/L BUN 21 H (9-20) mg/dL Glucose 138 H (74-99) mg/dL POC Glucose (mg/dL) 140 H (75-99) mg/dL Microbiology - Last 24 Hours (Table) 10/07/17 17:35 Blood Culture - Preliminary Blood No Growth after 72 hours 10/08/17 13:40 Gram Stain - Final Rectum Wound Culture - Final Proteus mirabilis Assessment and Plan (1) Perirectal abscess Narrative/Plan: Continue antibiotics. Stable for discharge. Follow-up as outpatient. Current Visit: Yes Status: Acute Code(s): K61.1 - RECTAL ABSCESS SNOMED Code(s): 42309314
[2017-10-11 11:19] LABS: Glucose,Whole Blood 147 mg/dL (75-99)
[2017-10-11] MEDS: AMPICILLIN-SULBACTAM 3 GM in SODIUM CHLORIDE 0.9% 100 ML IVPB SCH ×3 (11:43→23:46)
[2017-10-11] MEDS: SODIUM CHLORIDE 0.9% 1,000 ML IV SCH (13:03)
[2017-10-11] MEDS: Acetaminophen-Codeine 300-30mg TAB PO PRN ×2 (14:34→22:05)
[2017-10-11] MEDS ORDERED: FUROSEMIDE 10 MG/ML 4 ML VIAL IV STA (14:44)
--- NOTE | 2017-10-11 16:32 | PN ---
PROGRESS NOTE The patient is seen for followup for acute kidney injury. His renal function is improved significantly; however, patient's potassium has been slightly elevated. Blood sugars have not been terribly high. The patient is not maintained on any NSAIDs or OMAR inhibitors. He is on IV fluids at 40 mL an hour. Serum creatinine is down to 0.8 mg/dL. EXAMINATION: Blood pressure is 143/77, heart rate 66 per minute. Patient is afebrile. HEART: S1, S2. LUNGS: Bilateral breath sounds are heard. ABDOMEN: Soft, morbidly obese. Lower extremities show chronic edema bilaterally, not worse. The patient has a perirectal abscess and a dressing. LABS: Show sodium 144, potassium 5.2, chloride 102, BUN 21, serum creatinine 0.82. Hemoglobin 14.5 g/dL. ASSESSMENT: 1. Acute kidney injury associated with sepsis, hypotension, hypoperfusion, currently improved. IV fluids are down to about 40 mL an hour. 2. Hyperkalemia. Etiology unclear at this time. The patient is not significantly hyperglycemic. He may have underlying constipation secondary to the perirectal abscesses with re-absorption of potassium from the stool. The patient will be maintained on a low-potassium diet. A small dose of Lasix will also help with the mild hyperkalemia. The patient is not acidotic; in fact, his CO2 is high at 34. 3. Large perirectal abscess, status post I and D. PLAN: Maintain patient on low-potassium diet and I will give 1 dose of Lasix IV x1. MMODL / IJN: [id number] /
[2017-10-11 17:20] LABS: Glucose,Whole Blood 149 mg/dL (75-99)
--- NOTE | 2017-10-11 17:46 | PN ---
PROGRESS NOTE DATE OF SERVICE: 10/11/2017. REASON FOR FOLLOWUP: Perirectal abscess. INTERVAL HISTORY: The patient is currently afebrile. Pain in the perirectal area is currently controlled. Denies having any chest pain or shortness of breath. No pain or diarrhea. EXAMINATION: Blood pressure 145/79 with a pulse of 52, temperature 98.5. He is 98% on 4 L nasal cannula. GENERAL DESCRIPTION: A middle aged male up in the bed in no distress. RESPIRATORY SYSTEM: Unlabored breathing. Clear to auscultation anteriorly. HEART: S1, S2. Regular rate and rhythm. RECTAL: The perirectal area has no significant swelling, redness or induration noticed, however, soiled with stool when the dressing was removed. LABS: Hemoglobin is 14.5, white count 5.7, BUN of 21, creatinine 0.82. DIAGNOSTIC IMPRESSION AND PLAN: Patient with perirectal abscess, status post drainage. Culture positive for proteus mirabilis or resistant pathogen, however, in view of this infection we will keep the patient on IV vanc and Unasyn today. The patient is starting to improve, hopefully finish therapy with oral Cipro and Flagyl for at least 2 weeks with close outpatient followup and packing of the wound. The dressing should be changed. The patient did have a bowel movement with fecal contamination and persistent infection. MMODL / IJN: [id number] /
[2017-10-11 21:30] LABS: Glucose,Whole Blood 161 mg/dL (75-99)
[2017-10-12 06:28] VITALS: BP 144/96; PULSE 66; RESP 20; TEMP 98.1
[2017-10-12] MEDS: AMPICILLIN-SULBACTAM 3 GM in SODIUM CHLORIDE 0.9% 100 ML IVPB SCH ×2 (06:53→11:10)
[2017-10-12 07:13] LABS: Glucose,Whole Blood 139 mg/dL (75-99)
[2017-10-12] MEDS: INSULIN ASPART 100 UNIT/ML 1 ML 10 ML VIAL SQ SCH ×2 (08:29→13:38)
[2017-10-12] MEDS: Acetaminophen-Codeine 300-30mg TAB PO PRN ×2 (08:29→13:41)
--- NOTE | 2017-10-12 08:34 | PN ---
PROGRESS NOTE DATE OF SERVICE: 10/11/2017. PRESENT COMPLAINT: Rectal abscess. INTERVAL HISTORY: This patient was seen by me yesterday. The patient is status post I and D of rectal abscess. Is on IV antibiotics. Overall feeling better. Per ID, 1 more day of IV antibiotics. The patient is tolerating a diet. Had a bowel movement. There is a question about some swelling of the wound with stool. REVIEW OF SYSTEMS: Done for constitutional, cardiovascular, GI, pulmonary; relevant findings as above. CURRENT MEDICATIONS: Reviewed, include IV Unasyn. PHYSICAL EXAMINATION: Temperature 98.5, pulse 62, respiratory rate 18, blood pressure 145/79, pulse ox 98% on 4 L. GENERAL APPEARANCE: Sitting up in a chair, comfortable. EYES: Pupils equal. Conjunctivae normal. HEENT: External appearance of nose and ears normal. Oral cavity normal. NECK: JVD not raised. Mass not palpable. Respiratory effort increased. LUNGS: Distant breath sounds. CARDIOVASCULAR: Heart sounds muffled. Edema present. ABDOMEN: Soft, nontender. Liver and spleen not palpable. PSYCHIATRY: Alert and oriented x3. Mood and affect normal. INVESTIGATIONS: White count 5.7, potassium 5.2, BUN 21, creatinine 0.82. Accu-Cheks are noted. Wound cultures are growing Proteus mirabilis. ASSESSMENT: 1. Severe perirectal abscess causing sepsis, present on admission, in a diabetic patient. Cultures growing Proteus mirabilis, status post incision and drainage. 2. Diabetes mellitus type 2, on oral hypoglycemic, uncontrolled with hyperglycemia. 3. Morbidly obese, BMI 65.3. 4. Bilateral lower extremity venous insufficiency. 5. Primary osteoarthritis, multiple joints bilateral. 6. Acute renal failure, likely prerenal acute tubular necrosis from sepsis, improving. 7. Troponin leak from hemodynamic mismatch. No evidence of acute coronary syndrome. 8. Possible obesity hypoventilation syndrome. PLAN: Continue medication and treatment plan per ID. Patient should be able to be switched over to oral antibiotics. The patient's renal function has corrected. Care was discussed with the patient. MMODL / IJN: [id number] /
[2017-10-12] MEDS: HEPARIN SODIUM,PORCINE 5,000 UNIT/ML 1 ML VIAL SQ SCH (09:08)
[2017-10-12] MEDS: FAMOTIDINE 20 MG TAB PO SCH (09:09)
[2017-10-12] MEDS: DOCUSATE 100 MG CAP PO SCH (09:09)
[2017-10-12] MEDS: PSYLLIUM HUSK 100% 6 GM PACKET PO SCH (09:18)
[2017-10-12 10:42] LABS: Anion Gap 11 mmol/L; Blood Urea Nitrogen 17 mg/dL (9-20); Calcium 8.9 mg/dL (8.4-10.2); Carbon Dioxide 34 mmol/L (22-30); Chloride 96 mmol/L (98-107); Glucose 204 mg/dL (74-99); Potassium 4.6 mmol/L (3.5-5.1); Sodium 141 mmol/L (137-145)
[2017-10-12] MEDS: SODIUM CHLORIDE 0.9% 1,000 ML IV SCH (11:11)
[2017-10-12 11:46] LABS: Glucose,Whole Blood 152 mg/dL (75-99)
--- NOTE | 2017-10-12 14:21 | PN ---
PROGRESS NOTE Patient has been seen for followup for acute kidney injury. Renal function is completely resolved; however, serum potassium was elevated at 5.2 yesterday, is now improved to 4.6. The patient is maintained on a low-potassium diet. His blood sugars were slightly on the high side and they have improved as well now. He did have constipation secondary to the perirectal abscess and that has improved as well. PHYSICAL EXAMINATION: On examination today, blood pressure is 144/96, heart rate 64 per minute. Patient is afebrile. Examination of the heart. S1, S2. Examination lungs: Bilateral breath sounds are heard. Abdomen is soft, nontender. Morbidly obese. Examination of the lower extremities shows edema trace bilaterally. Chronic skin changes are noted. TILE PROFESSIONAL exam is grossly intact. LAB: Show sodium 140, potassium 4.6, chloride 96, CO2 is 24, BUN 17, serum creatinine 0.72, calcium 8.9. ASSESSMENT: 1. Acute kidney injury secondary to hypotension and sepsis, currently improved. 2. Perirectal abscess, status post I and D, maintained on antibiotics, currently improving. 3. Mild hyperkalemia which is multifactorial associated with hyperglycemia and constipation, currently improved. The patient will maintain a low-potassium diet, which we will continue. He did get 1 dose of IV Lasix yesterday. 4. Type 2 diabetes, maintained on insulin. PLAN: Continue low-potassium diet, repeat labs in a.m. Patient is stable for discharge from Nephrology standpoint. He should follow up as outpatient in about 2-3 weeks if he remains hyperkalemic. MMODL / IJN: [id number] /
--- NOTE | 2017-10-12 14:51 | PN ---
PROGRESS NOTE DATE OF SERVICE: 10/12/2017 REASON FOR FOLLOWUP VISIT: Perirectal abscess. INTERVAL HISTORY: The patient is currently afebrile. He is breathing comfortably. Denies having any chest pain or shortness of breath, no cough. No abdominal pain or any pain to the rectal area and no diarrhea. PHYSICAL EXAMINATION: Blood pressure 144/96, pulse of 56, temperature 98.1, he is 95% on room air. General description is a middle-aged male, up in the bed in no distress. RESPIRATORY SYSTEM: Unlabored breathing, clear to auscultation anteriorly. HEART: S1, S2. Regular rate and rhythm. ABDOMEN: Soft, no tenderness. LABS: BUN of 17, creatinine 0.72. Wound culture with Proteus mirabilis and aerobic gram- negative bacilli. DIAGNOSTIC IMPRESSION AND PLAN: Patient with a perirectal abscess, finish therapy with oral Cipro and Flagyl for 2 weeks. [facility]. Questions has been answered. MMODL / IJN: [id number] /
== END 2017-10-12 15:01 | disposition home health service (06) | DRG 853 ==
LOC: EC 17:04 → 6SEL 20:40 → 4MS4W 10-11 11:52
PROVIDERS: ADMIT Hospitalist; ATTEND Hospitalist
PROC: 0D9P0ZZ Drainage of Rectum, Open Approach (ICD-10-PCS; principal; 2017-10-08 12:23)
DX: A41.9 Sepsis, unspecified organism (principal); N17.0 Acute kidney failure with tubular necrosis; K61.1 Rectal abscess; E66.2 Morbid (severe) obesity with alveolar hypoventilation; Z68.44 Body mass index [BMI] 60.0-69.9, adult; J96.11 Chronic respiratory failure with hypoxia; K80.10 Calculus of gallbladder with chronic cholecystitis without obstruction; R65.20 Severe sepsis without septic shock; I95.9 Hypotension, unspecified; I11.0 Hypertensive heart disease with heart failure; I50.812 Chronic right heart failure; E87.5 Hyperkalemia; E11.65 Type 2 diabetes mellitus with hyperglycemia; G47.30 Sleep apnea, unspecified; I87.2 Venous insufficiency (chronic) (peripheral); M19.91 Primary osteoarthritis, unspecified site; K59.00 Constipation, unspecified; Z99.81 Dependence on supplemental oxygen; Z71.3 Dietary counseling and surveillance; Z79.82 Long term (current) use of aspirin; Z79.84 Long term (current) use of oral hypoglycemic drugs; Z79.899 Other long term (current) drug therapy
CPT/HCPCS: 36415; 74177; 76705; 76770; 80048; 80053; 81001; 82248; 82550; 82553; 83036; 83605; 84484; 85025; 87040; 87070; 87075; 87077; 87086; 87186; 87205; 93306; 96365; 96366; 99291

== ENCOUNTER → 2018-01-16 | Outpatient (CLI) | payer MEDICAID ==
--- NOTE | 2018-01-16 15:57 | PN ---
PROGRESS NOTE 62-year-old, who is coming to see me in followup regarding obstructive sleep apnea. The patient was diagnosed having moderate severe CHIQUIS along with obesity hypoventilation syndrome. He has an AHI of 24, and severe nocturnal oxygen desaturation and the patient spends more than 90% of sleep time at a pulse ox of less than 90%. He underwent CPAP titration and he was titrated to a CPAP pressure of 14 cm of water with oxygen at 4 L/minutes nasal cannula. On today's evaluation the patient is coming in for a compliancy check. He is accompanied by his family members. Family members report marked improvement sleep quality in general. His sleep quality is improved and the patient is waking up much more alert during the day. He is less foggy and sleepy and he has not taking much of daily daytime naps. The patient himself is happy with ongoing treatment. He is utilizing a CPAP at a pressure of 14 cm of water with C-Flex of 3. He is using a medium-size Simplus full face mask. Based on the compliance data the patient has been utilizing his CPAP every night and his compliancy for more than 4 hours is 100% averaging around 6.7 hours of CPAP use per night and the patient's AHI while on treatment is down to 0.4. His leak factor is only at 10 L/minute. As such, this is a very successful treatment for now. His nocturia has also subsided. No major deficits in lower extremities. His sleep is not fragmented. PHYSICAL EXAMINATION: BP 154/84, pulse is 70, respirations 16, temperature 97.4, weight is 384, saturation 94% on room air. GENERAL APPEARANCE: Calm, comfortable. Head is atraumatic, normocephalic. NECK: Supple. No JVD. No goiter or neck masses. Mallampati class IV. LUNGS: Clear to auscultation. HEART: Sounds regular rhythm. Normal S1, S2. No S3. No murmurs. ABDOMEN: Obese, soft, nontender. No organomegaly. EXTREMITIES: Chronic edema. There is no cyanosis or clubbing. NEUROLOGIC: Awake, alert and there is no focal neurological deficits. IMPRESSION: 1. Obstructive sleep apnea/obesity hypoventilation syndrome. The patient's AHI is 24, consistent with moderate severe disease and he had severe nocturnal oxygen desaturation. The patient underwent a successful CPAP titration and therapy. 2. Morbid obesity. Weight is 384 with a body mass index of 63. 3. Periodic limb movement improved with therapy. 4. Chronic hypoxic respiratory failure. 5. Chronic restrictive lung disease secondary to morbid obesity. 6. Diabetes mellitus type 2. 7. Hyperlipidemia. 8. Hypertension. PLAN: 1. Treatment is successful. Continue CPAP therapy at a pressure of 14 with a C-flex of 3. Along with oxygen 2 L/minutes nasal cannula. 2. Implement good sleep hygiene measures. 3. Encourage weight loss. 4. See me back in the office in a year's time, earlier if needed. Treatment is successful for now. MMODL / IJN: [id number] /
== END | disposition home or self-care (01) ==
LOC: SLEEP 09:53
PROVIDERS: ATTEND Internal Medicine Critical Care Medicine
DX: G47.33 Obstructive sleep apnea (adult) (pediatric) (principal); J44.9 Chronic obstructive pulmonary disease, unspecified; G47.61 Periodic limb movement disorder; J96.11 Chronic respiratory failure with hypoxia; E11.9 Type 2 diabetes mellitus without complications; E78.5 Hyperlipidemia, unspecified; I10 Essential (primary) hypertension; E66.01 Morbid (severe) obesity due to excess calories; Z68.44 Body mass index [BMI] 60.0-69.9, adult

== ENCOUNTER → 2019-01-22 | Outpatient (CLI) | payer MEDICAID ==
--- NOTE | 2019-01-22 19:48 | PN ---
PROGRESS NOTE Tayo is 63, coming in to see me for an annual check regarding his obstructive sleep apnea. The patient has an AHI of 24. The patient is currently being treated with CPAP. His CPAP is at a pressure of 14 cm of water. He is using a Simplus full-face mask, medium size. He is looking great. He is very compliant. His AHI is down to 0.5 while on treatment. His leak is 29 L/minute. He is utilizing his CPAP more than 4 hours 28 out of the past 30 days. He has no complaints otherwise for now. His [place] Score is 7. His weight is stable. He used to weigh 384 pounds and currently he is at 382. No hypersomnia. No sleepiness or tiredness during the day. PHYSICAL EXAMINATION: VITAL SIGNS: BP is /97, pulse 94, respirations 16, temperature 98.6, saturation 91% on room air. Height is 5 feet 5 inches, weight 382 and BMI 63.5. GENERAL APPEARANCE: Obese, calm, comfortable. No acute distress. HEAD: Atraumatic, normocephalic. NECK: Supple. Mallampati class IV. There is no goiter or neck mass. LUNGS: Clear to auscultation. HEART: Heart sounds are regular rate and rhythm. Normal S1, S2. No S3, S4. No murmurs. ABDOMEN: Soft, nontender. No organomegaly. No direct tenderness, rebound tenderness or guarding. EXTREMITIES: No edema. No cyanosis or clubbing. NEUROLOGIC: The patient has no significant focal neurological deficits. He is alert and oriented x3. IMPRESSION: 1. Obstructive sleep apnea with apnea/hypopnea index of 24, currently on CPAP with successful treatment. 2. Morbid obesity. BMI of 63. 3. Periodic limb movements. 4. Chronic hypoxic respiratory failure. 5. Chronic restrictive lung disease secondary to morbid obesity. 6. Diabetes mellitus, type 2. 7. Hyperlipidemia. 8. Hypertension. PLAN: Treatment continues to be successful. Renew the patient's Simplus medium-sized full- face mask. Keep the pressure at 14. Encourage further weight loss. No need for any further adjustments. See me back in a year's time in followup, earlier if needed. MMODL / IJN: [id number] /
== END | disposition home or self-care (01) ==
LOC: SLEEP 15:17
PROVIDERS: ATTEND Internal Medicine Critical Care Medicine
DX: G47.33 Obstructive sleep apnea (adult) (pediatric) (principal); E66.01 Morbid (severe) obesity due to excess calories; Z68.44 Body mass index [BMI] 60.0-69.9, adult; G47.61 Periodic limb movement disorder; J96.11 Chronic respiratory failure with hypoxia; J98.4 Other disorders of lung; E11.9 Type 2 diabetes mellitus without complications; I10 Essential (primary) hypertension; E78.5 Hyperlipidemia, unspecified; Z99.89 Dependence on other enabling machines and devices

== ENCOUNTER → 2020-07-14 | Outpatient (CLI) | payer MEDICARE ==
--- NOTE | 2020-07-14 15:21 | PN ---
PROGRESS NOTE A 64-year-old morbidly obese male patient coming in for an annual check regarding his obstructive sleep apnea. The patient is known to have CHIQUIS and currently is on CPAP at a pressure of 14 cm of water. I noted that his compliancy has gotten poor over these past 1 month. Apparently, the patient was infected with COVID-19. He had some difficulty in breathing and he was unable to use his CPAP at the time of his infection. This explained his lower average number of hours that he had accumulated over CPAP over the past 30-day compliancy data. Fortunately he is fully recovered from his COVID-19 and he is back to his baseline. He is mainly on CPAP at a pressure of 14. He is currently averaging around 4.5 hours per night and this will hopefully gradually improve slowly. His leak in order of 24 L/minute while using a Simplus full-face mask and his AHI is down to 0.1. He is back in utilizing his machine full scale. Check in a 12 month compliancy shows improved data. He has gained weight and is currently up to 415 pounds and his weight is up by around 33 pounds since his last evaluation. His BP is elevated at 172/98. He has history of hypertension, diabetes mellitus, and degenerative arthritis and this has affected his ability to walk and move and lose weight. Otherwise, no new complaints. He is in for refill of supplies. Machine was checked and functional and he has been a long-term CPAP user. REVIEW OF SYSTEMS: Fourteen-point review of system was done. Positive findings are mentioned in history of present illness. PHYSICAL EXAMINATION: VITAL SIGNS: BP is 172/98, pulse 100, respirations 20, temperature 97.9, saturation 92% on room air. Height is 5 feet 5 inches, weight is 415 pounds [place] score of 15. BMI is 68.8. GENERAL APPEARANCE: Obese, calm, comfortable. HEAD: Atraumatic, normocephalic. NECK: Supple. Mallampati class 4. There is no goiter or neck mass. LUNGS: Diminished otherwise clear. HEART: Heart sounds are regular rate and rhythm. Normal S1, S2, no S3, S4. No murmurs. ABDOMEN: Soft, nontender. No organomegaly. In fact, organs cannot be adequately palpated as the patient is morbidly obese. EXTREMITIES: Trace edema. There is no cyanosis or clubbing. IMPRESSION: 1. Obstructive sleep apnea, maintained on CPAP pressure of 14 cm of water. The patient has a baseline AHI of 24, consistent with moderate to severe disease. He has been compliant with CPAP therapy over the years with some worsening in his compliance over the past 30 days because of COVID-19 infection. 2. COVID-19 infection/pneumonia, recovered. 3. Morbid obesity with interval weight gain. Current weight is up to 415 with a body mass index of 68.8. 4. Hypertension. 5. Diabetes mellitus. 6. Degenerative arthritis. 7. Benign prostatic hypertrophy. PLAN: 1. Continue CPAP therapy at the same level of pressure at the pressure of 14. 2. Refill on supplies including Simplus full-face mask, medium size. 3. Monitor blood pressure and treat accordingly. This will be followed up with the primary care physician. 4. Weight loss. 5. He has a [employer] system to keep the equipment clean and this will be continued. 6. We will see me back in a year's time in followup. No major respiratory difficulties for now. He is fully recovery from COVID-19 without any major complications. MMODL / IJN: [id number] /
== END ==
LOC: SLEEP 14:03
PROVIDERS: ATTEND Internal Medicine Critical Care Medicine
DX: G47.33 Obstructive sleep apnea (adult) (pediatric) (principal); E66.01 Morbid (severe) obesity due to excess calories; I10 Essential (primary) hypertension; E11.9 Type 2 diabetes mellitus without complications; M19.90 Unspecified osteoarthritis, unspecified site; N40.0 Benign prostatic hyperplasia without lower urinary tract symptoms; Z68.44 Body mass index [BMI] 60.0-69.9, adult; Z86.16 Personal history of COVID-19; Z87.01 Personal history of pneumonia (recurrent)

== ENCOUNTER → 2021-08-31 | Outpatient (CLI) | payer MEDICARE ==
--- NOTE | 2021-08-31 15:02 | P.PN ---
Subjective Progress Note Date: 08/31/21 Morbidly obese 65-year-old male patient coming in for an annual checkup regarding his obstructive sleep apnea. The patient's last evaluation as on 07/14/2020. 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 He is morbidly obese and his weight has remained stable in the order of 411 pounds. The patient was also diagnosed having obstructive sleep apnea. The patient has been utilizing CPAP therapy at a pressure of 14 cm of water his treatment has been extremely successful over the years. His current machine is a new machine and he obtained at approximately a year ago. He is utilizing the machine every night without any interruption in his achieving approximately 5-1/2 hours of CPAP use per night and he has used his machine more than 4 hours 100% of the time. His been utilizing a Simplus fullface mask, medium size and the leak around the mask is in order of 19 L per minute and the patient's AHI is on 0.1 indicating successful treatment. No hypersomnia and sleepiness during the day. He continues to benefit from the treatment. No issues with a CPAP therapy as the patient is able to tolerate the treatment without any major difficulties. His sleep quality remains good. His [place] conditions include hypertension, diabetes mellitus and osteoarthritis. No cardiac or any other pulmonary complications. Objective - Exam he is 184/98, pulse is 105, respirations 20, temperature is 96.9, saturation is 94% room air, a poor scores at 9, weight is 411 pounds. Gen. appearance the patient is morbidly obese, calm, comfortable, not in acute distress The patient appeared well nourished and normally developed. Vital signs as documented. Head exam is unremarkable. No scleral icterus or corneal arcus noted. Neck is without jugular venous distension, thyromegaly, or carotid bruits. Carotid upstrokes are brisk bilaterally. the patient has a Mallampati class IV .Lungs are clear to auscultation and percussion. Cardiac exam reveals the PMI to be normally sized and situated. Rhythm is regular. First and second heart sounds normal. No murmurs, rubs or gallops. Abdominal exam reveals normal bowel sounds, no masses, no organomegaly and no aortic enlargement. note that the organs cannot be accurately palpated as the patient is morbidly obese.Extremities are nonedematous and both femoral and pedal pulses are normal.Examination of the skin revealed no evidence of significant rashes, suspicious appearing nevi or other concerning lesions.Neurologically, the patient is awake and alert and the patient does not have any focal neurological deficit. Cranial nerves are essentially intact. Assessment and Plan Plan: 1 obstructive sleep apnea successfully treated with a CPAP pressure of 14 cm of water. The patient has achieved adequate compliance in the clinic response as well as favorable while being on CPAP therapy. 2 chronic hypersomnia, improved with CPAP therapy 3 morbid obesity, weight is stable at 411 pounds 4 previous history of COVID 19 infection 2, with recovery 5 hypertension 6 diabetes mellitus type 2 7 osteoarthritis 8 benign prostatic hypertrophy Plan continue CPAP therapy the same level of pressure and keep the patient is Simplus fullface mask. Encourage weight loss. Sleep hygiene measures of good. Refills will be given. See back in 2 years time in follow-up. Condition is stable for now. Also noted that the elevation of blood pressure and the patient was asked to contact his primary care physician for a tighter blood pressure control.
== END | disposition home or self-care (01) ==
LOC: SLEEP 14:13
PROVIDERS: ATTEND Internal Medicine Critical Care Medicine
DX: G47.33 Obstructive sleep apnea (adult) (pediatric) (principal); G47.10 Hypersomnia, unspecified; E66.01 Morbid (severe) obesity due to excess calories; I10 Essential (primary) hypertension; E11.9 Type 2 diabetes mellitus without complications; Z86.16 Personal history of COVID-19; M19.90 Unspecified osteoarthritis, unspecified site; N40.0 Benign prostatic hyperplasia without lower urinary tract symptoms

== ENCOUNTER → 2022-08-25 | Outpatient (CLI) | payer MEDICARE ==
--- NOTE | 2022-08-25 10:27 | CT ---
EXAMINATION TYPE: CT shoulder LT wo con DATE OF EXAM: 08/25/2022 COMPARISON: None HISTORY: Chronic left shoulder pain. Pre surgical for rotator cuff. CT DLP: 1057.[address] of the left shoulder with reconstruction imaging. TECHNIQUE: Unenhanced CT of the left shoulder was performed with bone and soft tissue window settings submitted in the axial coronal and sagittal planes. At a separate workstation [id number] TR imaging was ob tained. FINDINGS: There is elevation of the humeral head relative to the glenoid axis compatible with chronic rotator c uff tear. Is marked subacromial narrowing with bony remodeling seen. There is subchondral sclerosis a nd cyst formation of the humeral head. Severe glenohumeral joint space narrowing noted as well. Moder ate to severe AC joint arthropathy. Subchondral cyst formation distal clavicle. I do not see evidence for fracture. Multiple low loose bodies noted. At least moderate joint effusion noted. No bony destr uctive process. The left lung is well-aerated. Left-sided ribs as visualized are grossly unremarkable . IMPRESSION: 1. Changes of chronic rotator cuff tear with advanced osteoarthritis.
== END | disposition home or self-care (01) ==
LOC: RADCTMAIN 09:04
DX: M19.012 Primary osteoarthritis, left shoulder (principal); M75.102 Unspecified rotator cuff tear or rupture of left shoulder, not specified as traumatic